=== PATIENT | male | born 1970 | race Caucasian/White ===

== ENCOUNTER 2024-12-01 15:08 | Outpatient (AMB) | payer MEDICARE, MEDICAID, SELFPAY ==
--- NOTE | 2024-12-01 15:10 | A.OFFVIS_ITS ---
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 Does have LE swelling Left LE worse than Right LE. Uses a cream to help with itching. 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 He has a history of venous insufficiency in his lower legs, initially identified by his primary care physician and previously evaluated by a vascular specialist who was not overly concerned at that time. The patient also consulted a nail specialist who recommended a topical steroid, which was ineffective and possibly exacerbated the condition. The patient reports worsening discoloration and rash on his lower legs, which have not improved over time. He denies any similar symptoms on his arms or other body parts. The patient has a family history of varicose veins, as his mother had significant varicose veins and was overweight. He denies any personal or family history of blood clots. The patient is a former smoker and has no history of diabetes, although he had a slightly elevated A1c level previously, which he managed through diet and exercise, bringing it down to 5.7%. 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 The patient experiences pain in his legs when reclining, particularly in one leg, although both legs are similarly affected. He has not undergone any procedures on his legs. It has been affecting there daily activities including walking. It is noted more so in left leg. Patient denies any previous venous surgery or injections. Patient denies any history of DVT/ PE. Patient denies any history of phlebitis. Trial of compression includes - [id number] They now present for vascular evaluation regarding their varicose veins. PFSH Surgical History (Updated 12/01/24 @ 15:18 by JONATAN Montoya) H/O colonoscopy Social History (Updated 12/01/24 @ 15:18 by JONATAN Montoya) Patient Tobacco Use Status: Never used Tobacco Review of Systems Const Reports as per HPI ENT Reports no additional complaints Card Denies chest pain, Denies chest pain at rest and Denies chest pain with activity Resp Denies chest congestion and Denies cough GI Reports no additional complaints Musc Details: pain over varicosities, aching of lower extremities, swelling, cramping, heaviness and tiredness, itching Denies abnormal gait Skin/Breast Reports pruritus and Denies wounds Neuro Reports no additional complaints and Denies abnormal gait Psych Denies no additional complaints Physical Exam Vital Signs: BMI result Body Mass Index 32.9 Const General: cooperative, healthy appearing and comfortable Orientation/consciousness: oriented to person, oriented to place and oriented to time Neck Carotids: no bruits Chest Chest palpation & inspection: normal inspection of the chest and normal palpation of entire chest wall Resp Effort & Inspection: normal respiratory effort and able to speak in complete sentences Cardio Rate: regular rate Heart sounds: S1 normal heart sound present and S2 normal heart sound present Peripheral pulses: Peripheral pulses 2+ throughout GI Inspection: Yes normal to inspection Skin Other: +2 edema, large rope-like varicosities greater than 4 mm CEAP Classification C4 - skin color changes Ep - Etiology Primary As - superficial veins P - reflux General skin exam: dry skin Neuro General: oriented to person, oriented to place and oriented to time Extrem Right lower extremity: full ROM, normal capillary refill and edema Left lower extremity: full ROM, normal capillary refill and edema Psych Mental Status: mental status grossly normal Assessment & Plan Assessment & Plan (1) Varicose veins of left lower extremity with inflammation: Code(s): I83.12 - Varicose veins of left lower extremity with inflammation Category: Medical Plan: In short, the patient has evidence of venous insufficiency. I have discussed the pathophysiology with the patient. In addition I have provided informational material regarding venous disease to the patient. We have discussed conservative measures including compression, elevation, and exercise. I have also provided a handout regarding appropriate use of compression stockings and where to purchase good compression stockings as well. I have taken the liberty of ordering venous insufficiency testing with the patient. They will follow up with me after testing. The patient had an opportunity to ask questions regarding the treatment plan. All questions were answered. Imaging studies, laboratory studies and physical exam results were discussed and reviewed in detail. No major barriers to understanding were identified. The patient expressed understanding and agreement with the above treatment plan. The patient is aware they should contact our office by phone for worsening of the current condition or the appearance of new symptoms. Thank you for allowing me to participate in the vascular care of this patient. If you have any questions or concerns regarding the treatment for the above condition please do not hesitate to contact me. The office telephone contact is [phone]. This note is constructed using voice recognition software. While every effort has been made to ensure accuracy, lithographic retoucher apprentice errors may have been included. Thank you for allowing me to participate in the care of your patient. Yours sincerely, Merlin Dewitt MD, FACS, R.P.V.I. Orders: Orders US venous duplex LE Today I83.12 - Varicose veins of left lower extremity with inflammation Coding Level of Care Code New Pt Level 4 (07300) Diagnoses Varicose veins of left lower extremity with inflammation I83.12
[2024-12-01 15:11] VITALS: BMI 32.9
--- OUTSIDE RECORDS SUMMARY | 2024-12-01 16:30 | XMS_ITS | Encounter Summary ---
Author Organization [facility] Address [address] [facility] [address] [place] [address] Phone Care Team Providers Care Wire Coiler Machine Operator Name Role Phone You Worthington MD Primary Care Provide r Encounter Details Date Type Department Care Team (Latest Contact Info) Description 02/12/2020 Ancillary Orders Virtual Department [address] [place] [address] Roderick Vitale, DO [address] [place] [address] [email or web address] Lumbar radiculopathy Social History Tobacco Use Types Packs/Day Years Used Date Smoking Tobacco: Never Assessed Sex and Gender Information Value Date Recorded Sex Assigned at Not on file Legal Sex Male 9:32 PM EDT Gender Identity Not on file Sexual Orientation Not on file documented as of this encounter Plan of Treatment Not on file documented as of this encounter Results * XR LUMBOSACRAL SPINE 2-3 VIEWS (02/15/2020 10:32 AM EST) Anatomical Region Laterality Modality L-spine Computed Radiogr aphy 02/15/2020 11:0 4 AM EST Impressions 02/15/2020 11:08 AM EST Mild scoliosis. No compression deformity or other dramatic change appreciated to account for the pain. Narrative 02/15/2020 11:08 AM EST AP, lateral, and coned-down lateral views are obtained and compared to prior May 23, 2015. There is some slight scoliosis convex left, progressive since prior. There does not appear to be prominently progressive disc height loss. No endplate compression or jermaine bony destructive lesion is seen. No gross sclerosis or erosion seen at the SI joints. Some iliac atherosclerotic change suggested on the right. Procedure Note Nahun Victor MD - 02/15/2020 AP, lateral, and coned-down lateral views are obtained and compared toprior May 23, 2015. There is some slight scoliosis convex left,progressive since prior. There does not appear to be prominentlyprogressive disc height loss. No endplate compression or jermaine bonydestructive lesion is seen. No gross sclerosis or erosion seen at the SIjoints. Some iliac atherosclerotic change suggested on the right. IMPRESSION: Mild scoliosis. No compression deformity or other dramatic changeappreciated to account for the pain. us Roderick Vitale DO IMG XR SPINE Final Result documented in this encounter Visit Diagnoses Diagnosis Lumbar radiculopathy Thoracic or lumbosacral neuritis or radiculitis, unspecified Lumbar radiculopathy Thoracic or lumbosacral neuritis or radiculitis, unspecified documented in this encounter Care Teams Wire Coiler Machine Operator Relationship Specialty Start Date End Date You Worthington MD [address] [address] PCP - General Family Medicine 12/24/17 documented as of this encounter Additional Source Comments The information contained in this document represents components of the legal health record. It is not the complete legal health record.[facility]
--- OUTSIDE RECORDS SUMMARY | 2024-12-01 16:30 | XMS_ITS | Encounter Summary ---
Author Organization [facility] Address [address] [facility] [address] [place] [address] Phone Care Team Providers Care Painter And Body Mechanic Apprentice Name Role Phone Kristina Gonzalez MD Primary Care Provider Kristina Gonzalez MD Primary Care Provider You Worthington MD Primary Care Provide r Encounter Details Date Type Department Care Team (Late st Contact Info) Description 03/21/2017 Transcribe Orders [facility] [address] [place] [address] System, Provider Not In, PhD Partners [address] [address] Depression, unspecified depression type (Primary Dx) Social History Tobacco Use Types Packs/Day Years Used Date Smoking Tobacco: Never Assessed Sex and Gender Information Value Date Recorded Sex Assigned at Not on file Legal Sex Male 9:32 PM EDT Gender Identity Not on file Sexual Orientation Not on file documented as of this encounter Plan of Treatment Not on file documented as of this encounter Results * (ABNORMAL) CBC and differential (03/21/2017 2:10 PM EST) WBC 8.13 3.40 - 11.20 K/uL [facility] RBC 4.51 4.50 - 5.50 M/uL [facility] HGB 14.1 13.0 - 17.0 g/dL [facility] HCT 42.7 40.0 - 51.0 % [facility] PLT 183 130 - 400 K/uL [facility] MCV 94.7 79.0 - 98.0 fL [facility] MCH 31.3 27.0 - 34.8 pg [facility] MCHC 33.0 31.5 - 36.0 g/dL [facility] RDW 13.0 10.8 - 14.6 % [facility] MPV 10.6 9.4 - 12.4 fl [facility] NRBC 0.00 /100 WBCs [facility] ABSOLUTE NRBC 0.00 K/uL [facility] DIFF METHOD Auto [facility] NEUTS 61.7 45.30 - 77.70 % [facility] LYMPHS 29.0 12.30 - 39.70 % [facility] MONOS 8.2 4.10 - 12.80 % [facility] EOS 0.0 0 - 7.2 % [facility] BASOS 0.6 0 - 2.80 % [facility] Granulocytes, immature (%) 0.5 0.0 - 0.9 % [facility] ABSOLUTE NEUTS 5.01 1.40 - 7.70 K/uL [facility] ABSOLUTE LYMPHS 2.36 0.60 - 3.20 K/uL [facility] ABSOLUTE MONOS 0.67(H) 0.11 - 0.59 K/uL [facility] ABSOLUTE EOS 0.00(L) 0.01 - 0.50 K/uL [facility] ABSOLUTE BASOS 0.05 0.00 - 0.08 K/uL [facility] Granulocytes, immature 0.04 0.00 - 0.05 K/uL [facility] Blood 03/21/2017 2:10 PM EST 03/21/2017 2:13 PM EST us Provider Not In System PhD LAB BLOOD ORDERABLES Final Result [facility] [address] [place] [address] documented in this encounter Visit Diagnoses Diagnosis Depression, unspecified depression type- Primary documented in this encounter Care Teams Painter And Body Mechanic Apprentice Relationship Specialty Start Date End Date Kristina Gonzalez MD PCP - General Family Medicine 01/23/17 11/11/17 Kristina Gonzalez MD PCP - General Family Medicine 11/12/17 12/23/17 You Worthington MD [address] [address] PCP - General Family Medicine 12/24/17 documented as of this encounter Additional Source Comments The information contained in this document represents components of the legal health record. It is not the complete legal health record.[facility]
--- OUTSIDE RECORDS SUMMARY | 2024-12-01 16:30 | XMS_ITS | Encounter Summary ---
Author Organization [facility] Address [address] [facility] [address] [place] [address] Phone Care Team Providers Care Coding Quality Analyst Name Role Phone You Worthington MD Primary Care Provide r Encounter Details Date Type Department Care Team ([facility] st Contact Info) Description 02/17/2020 Procedure Pass [facility], [address] [address] Social History Tobacco Use Types Packs/Day Years Used Date Smoking Tobacco: Never Assessed Sex and Gender Information Value Date Recorded Sex Assigned at Not on file Legal Sex Male 9:32 PM EDT Gender Identity Not on file Sexual Orientation Not on file documented as of this encounter Last Filed Vital Signs Vital Sign Reading Time Taken Comments Blood Pressure - - Pulse - - Temperature - - Respiratory Rate - - Oxygen Saturation - - Inhaled Oxygen Concentration - - Weight 129.3 kg (285 lb) 02/18/2020 1:44 PM EST Height 193 cm (6' 4 ) 02/18/2020 1:44 PM EST Body Mass Index 34.69 02/18/2020 1:44 PM EST documented in this encounter Plan of Treatment Not on file documented as of this encounter Visit Diagnoses Not on filedocumented in this encounter Care Teams Coding Quality Analyst Relationship Specialty Start Date End Date You Worthington MD [address] [facility] [address] [place] [address] PCP - General Family Medicine 12/24/17 documented as of this encounter Additional Source Comments The information contained in this document represents components of the legal health record. It is not the complete legal health record.[facility]
--- OUTSIDE RECORDS SUMMARY | 2024-12-01 16:30 | XMS_ITS | Encounter Summary ---
Author Organization [facility] Address [address] [facility] [address] [place] [address] Phone Care Team Providers Care Concrete Form Setter Name Role Phone You Worthington MD Primary Care Provide r Reason for Referral * MRI/CAT Scan - Closed Specialty Diagnoses / Procedures Referred By Duglas ovalle Referred To Contact Radiology Diagnoses Lumbar radiculopathy Procedures MRI Lumbar Spine Roderick Vitale DO Phone: tel: fax: [email or web address] Referral ID Status Reason Start Date Expiration Date Visits Re quested Visits Authorized [id number] Closed 02/17/2020 02/16/2021 1 1 Encounter Details Date Type Department Care Team (Latest Contact Info) Description 02/17/2020 Ancillary Orders Virtual Department [address] [place] [address] Roderick Vitale DO [address] [place] [address] [email or web address] Lumbar radiculopathy Social History Tobacco Use Types Packs/Day Years Used Date Smoking Tobacco: Never Assessed Sex and Gender Information Value Date Recorded Sex Assigned at Not on file Legal Sex Male 9:32 PM EDT Gender Identity Not on file Sexual Orientation Not on file documented as of this encounter Plan of Treatment Not on file documented as of this encounter Results * MRI LUMBAR SPINE (NEURO) WITHOUT CONTRAST (02/23/2020 7:20 PM EST) Anatomical Region Laterality Modality L-spine Magnetic Resonan ce 02/24/2020 7:47 AM EST Impressions 02/24/2020 7:55 AM EST Small L2-3 and L4-5 disc herniations. No significant degenerative changes, nerve root compression, canal or neural foraminal stenosis. Narrative 02/24/2020 7:55 AM EST COMPARISON: Lumbar spine x-rays 02/15/2020. TECHNIQUE: Exam performed on a 1.5 Lupe high-field MRI scanner. Sagittal T1, T2 and STIR, axial T1 and T2 sequences were obtained. MRI LUMBAR SPINE FINDINGS: Normal lordosis. No compression fractures. No malalignment. L2-3 disc desiccation mild disc space narrowing. No destructive or suspicious bone lesions. Conus terminates at T12-L1. Paraspinal soft tissues are normal. L1-L2: Unremarkable. L2-L3: Disc desiccation and mild disc space narrowing. Broad-based left paracentral disc protrusion and annular tear. L3-L4: Unremarkable. L4-L5: Small broad-based central disc protrusion and annular tear. Mild facet arthropathy. L5-S1: Unremarkable. Procedure Note Christiano Ochoa MD - 02/24/2020 COMPARISON: Lumbar spine x-rays 02/15/2020. TECHNIQUE: Exam performed on a 1.5 Lupe high-field MRI scanner. SagittalT1, T2 and STIR, axial T1 and T2 sequences were obtained. MRI LUMBAR SPINE FINDINGS: Normal lordosis. No compression fractures. No malalignment. L2-3 discdesiccation mild disc space narrowing. No destructive or suspicious bonelesions. Conus terminates at T12-L1. Paraspinal soft tissues are normal. L1-L2: Unremarkable. L2-L3: Disc desiccation and mild disc space narrowing. Broad-based leftparacentral disc protrusion and annular tear. L3-L4: Unremarkable. L4-L5: Small broad-based central disc protrusion and annular tear. Mildfacet arthropathy. L5-S1: Unremarkable. IMPRESSION: Small L2-3 and L4-5 disc herniations. No significant degenerative changes,nerve root compression, canal or neural foraminal stenosis. us Roderick Vitale DO IMG MR XSPECIALTY Final Resu lt documented in this encounter Visit Diagnoses Diagnosis Lumbar radiculopathy Thoracic or lumbosacral neuritis or radiculitis, unspecified Lumbar radiculopathy Thoracic or lumbosacral neuritis or radiculitis, unspecified documented in this encounter Care Teams Concrete Form Setter Relationship Specialty Start Date End Date You Worthington MD [address] [address] PCP - General Family Medicine 12/24/17 documented as of this encounter Additional Source Comments The information contained in this document represents components of the legal health record. It is not the complete legal health record.[facility]
--- OUTSIDE RECORDS SUMMARY | 2024-12-01 16:31 | XMS_ITS | Encounter Summary ---
Author Organization [facility] Address [address] [facility] [address] [place] [address] Phone Care Team Providers Care Toll Relief Operator Name Role Phone You Worthington MD Primary Care Provide r Encounter Details Date Type Department Care Team ([facility] st Contact Info) Description 12/04/2022 Transcribe Orders [facility] Processing [address] [place] [address] Archie Reddy MD [address] [place] [phone] Social History Tobacco Use Types Packs/Day Years Used Date Smoking Tobacco: Never Assessed Education Answer Date Recorded Are you interested in more education? Not on osiel e 06/28/2022 Are you concerned about learning? Not on file 06/28/2022 No 06/28/2022 No 06/28/2022 Digital Access Answer Date Recorded No 07/30/2022 No 07/30/2022 Reliable internet access at home? Not on file 07/30/2022 Device with a working camera? Not on file Sex and Gender Information Value Date Recorded Sex Assigned at Not on file Legal Sex Male 9:32 PM EDT Gender Identity Not on file Sexual Orientation Not on file documented as of this encounter Plan of Treatment Not on file documented as of this encounter Visit Diagnoses Not on filedocumented in this encounter Care Teams Toll Relief Operator Relationship Specialty Start Date End Date You Worthington MD [address] [facility] [address] [place] [address] PCP - General Family Medicine 12/24/17 documented as of this encounter Additional Source Comments The information contained in this document represents components of the legal health record. It is not the complete legal health record.[facility]
--- OUTSIDE RECORDS SUMMARY | 2024-12-01 16:31 | XMS_ITS | Clinical Summary ---
Author Organization [facility] Address [address] [place] [address] Phone Care Team Providers Care Civil Engineering Draftsperson Name Role Phone You Worthington MD Primary Care Provide r Allergies No known active allergies Medications cloZAPine (CLOZARIL) 100 MG tablet Take 100 mg by mouth 3 (three) times a day. Active divalproex (DEPAKOTE) [address] tablet Take 500 mg by mouth 2 (two) times a day. Active Active Problems No known active problems Encounters Date Type Department Care Team Description 11/05/2024 2:26 PM EDT - 11/05/2024 11:59 PM EDT Hospital Encounter [facility] Laboratory [address] [place] [address] Haroon Reddy MD Discharge Disposition: Home or Self Care 11/02/2024 Orders Only [facility] Specimen Processing [address] [place] [address] Haroon Reddy MD Schizoaffective disorder, depressive type (Primary Dx); Drug therapy 10/29/2024 2:03 PM EDT - 10/29/2024 11:59 PM EDT Hospital Encounter [facility] Laboratory [address] [place] [address] Haroon Reddy MD Discharge Disposition: Home or Self Care 10/29/2024 Transcribe Orders [facility] [address] [place] [address] Haroon Reddy MD Schizoaffective disorder, depressive type (Primary Dx); Pharmacologic therapy 10/28/2024 3:48 PM EDT - 10/28/2024 11:59 PM EDT Hospital Encounter [facility] [address] [place] [address] Haroon Reddy MD Discharge Disposition: Home or Self Care from Last 3 Months Social History Tobacco Use Types Packs/Day Years Used Date Smoking Tobacco: Former Cigarettes Q uit: 2018 Smokeless Tobacco: Never Tobacco Cessation:Counseling Given: Not Answered Alcohol Use Standard Drinks/Week Comments Never 0 (1 standard drink = 0.6 oz pur e alcohol) Education Answer Date Recorded Are you interested in more education? Not on oseil e 06/28/2022 Are you concerned about learning? Not on file 06/28/2022 No 06/28/2022 No 06/28/2022 Digital Access Answer Date Recorded No 07/30/2022 No 07/30/2022 Reliable internet access at home? Not on file 07/30/2022 Device with a working camera? Not on file Intimate Partner Violence Answer Date R ecorded Are you denied basic needs s uch as food, clothing, or medical care? No 07/03/2024 In the past 12 months have y ou been in a relationship with a person who hurts, threatens, or tries to control you? No 07/03/2024 Are you denied basic needs s uch as food, clothing, or medical care? No 07/03/2024 In the past 12 months have y ou been in a relationship with a person who hurts, threatens, or tries to control you? No 07/03/2024 Sex and Gender Information Value Date Recorded Sex Assigned at Not on file Legal Sex Male 9:32 PM EDT Gender Identity Not on file Sexual Orientation Not on file Last Filed Vital Signs Vital Sign Reading Time Taken Comments Blood Pressure 125/79 07/09/2024 11:07 AM EDT Pulse 74 07/09/2024 11:07 AM EDT Temperature 36.4 C (97.6 F) 07/09/2024 10:50 AM EDT Respiratory Rate 15 07/09/2024 11:07 AM EDT Oxygen Saturation 95% 07/09/2024 11:07 AM EDT Inhaled Oxygen Concentration - - Weight 129.3 kg (285 lb) 07/03/2024 2:14 PM EDT Height 193 cm (6' 4 ) 07/03/2024 2:14 PM EDT Body Mass Index 34.69 07/03/2024 2:14 PM EDT Plan of Treatment Health Maintenance Due Date Last Done Comments DEPRESSION SCREENING 1984 SMOKING Hx and SMOKELESS TOBACCO SCREENING 1985 HEPATITIS C SCREENING 1990 HIV ONE-TIME SCREENING (18-65 YEARS) 1990 COLOGUARD 2017 FIT TEST 2017 FOBT 2017 SIGMOIDOSCOPY 2017 VIRTUAL COLONOSCOPY 2017 PNEUMOCOCCAL VACCINES (50+ years) (2 of 2 - PCV) 2022 02/03/2013 SCREENING FOR DIABETES 07/18/2024 07/18/2021 INFLUENZA VACCINE (#1) 2024 , 12/12/2022, 12/25/2021, Additional history exists ABSOLUTE NEUTROPHIL COUNT (ANC) 11/26/2024 10/29/2024, 07/30/2024, 05/11/2024, Additional history exists VALPROIC ACID (DEPAKENE) LEVEL 11/05/2025 11/05/2024, 09/11/2023, 07/17/2022, Additional history exists LIPID PANEL 07/18/2026 07/18/2021, 07/03, 08/19/2019, Additional history exists Adult Td,Tdap Booster 01/25/2032 01/24/2022 , 11/21/2010, 07/02/1998 COLONOSCOPY 07/09/2034 07/09/2024, 06/14/2023 COLORECTAL CANCER SCREENING 07/09/2034 COVID-19 VACCINE Completed 12/03/2023, , 11/21/2021, Additional history exists ZOSTER VACCINES Completed 06/24/2024, 04/25/2024 HEPATITIS A VACCINES Aged Out No long er eligible based on patient's age to complete this topic HIB VACCINES Aged Out No longer eligi ble based on patient's age to complete this topic MENINGOCOCCAL VACCINES (ACWY) Aged Out No longer eligible based on patient's age to complete this topic MENINGOCOCCAL VACCINES (B) Aged Out N o longer eligible based on patient's age to complete this topic Medical Devices Implanted Type Area Parts And Service Manager Device Identifier Shelf Expiration Date Model / Serial / Lot Clip Hemostasis 360deg 235cm Resolution 360 Latex Free 2.8mm Channel Bx/20ea - [id number] Implanted:Qty: 1 on 06/14/2023 by Tex Callahan MD at [facility] [employer] [id number] / / Clip Hemostasis 16mm Cs/5ea - [id number] Implanted:Qty: 1 on 07/09/2024 by Tex Callahan MD at [facility] [employer] 117 / / Procedures Procedure Name Priority Date/Time Associated Diagnosis Comments VALPROIC ACID Routine 11/05/2024 2:34 PM EDT Schizoaffective disorder, depressive type Drug therapy LFTS (HEPATIC PANEL) Routine 11/05/2024 2:34 PM EDT Schizoaffective disorder, depressive type Drug therapy LFTS (HEPATIC PANEL) Routine 10/29/2024 2:10 PM EDT Schizoaffective disorder, depressive type Pharmacologic therapy CBC AND DIFFERENTIAL Routine 10/29/2024 2:10 PM EDT Schizoaffective disorder, depressive type Pharmacologic therapy ENDOSCOPY, COLON 07/09/2024 10:1 8 AM EDT LIPID PANEL Routine 07/18/2021 9:22 AM EDT High risk medication use Schizoaffective disorder, depressive type Encounter for long-term (current) use of other medications from Last 3 Months or Most Recently Relevant to Health Maintenance Results * LFTs (hepatic panel) (11/05/2024 2:34 PM EDT) Only the most recent of2 resultswithin the time period is included. ALKALINE PHOSPHATASE 71 39 - 117 U/L [facility] TOTAL BILIRUBIN 0.5 0.0 - 1.2 mg/dL [facility] DIRECT BILIRUBIN 0.1 0.0 - 0.2 mg/dL [facility] Bilirubin (Indirect) NOT CALCULATED 0 - 1.5 mg/dL [facility] AST 25 0 - 37 U/L [facility] ALT 27 0 - 40 U/L [facility] TOTAL PROTEIN 7.2 6.5 - 8.0 g/dL [facility] ALBUMIN 4.5 3.9 - 4.8 g/dL [facility] GLOBULIN 2.7 1 - 4.8 g/dL [facility] A/G Ratio 1.67 1.00 - 4.80 RATIO [facility] Blood 11/05/2024 2:34 PM EDT 11/05/2024 2:46 PM EDT Haroon Reddy MD LAB BLOOD ORDERABLES Final Result [address] [address] * Valproic acid (11/05/2024 2:34 PM EDT) VALPROIC ACID 58.3 50.0 - 100.0 ug/mL [facility] Blood 11/05/2024 2:34 PM EDT 11/05/2024 2:46 PM EDT Haroon Reddy MD LAB BLOOD ORDERABLES Final Result [address] [address] * CBC and differential (10/29/2024 2:10 PM EDT) WBC 8.45 4.00 - 11.00 K/uL [facility] RBC 5.03 4.50 - 5.90 M/uL [facility] HGB 15.6 13.5 - 17.5 g/dL [facility] HCT 47.3 41.0 - 53.0 % [facility] PLT 175 150 - 450 K/uL [facility] MCV 94.0 80.0 - 100.0 fL [facility] MCH 31.0 27.0 - 31.0 pg [facility] MCHC 33.0 32.0 - 36.0 g/dL [facility] RDW 12.9 11.5 - 14.5 % [facility] MPV 11.2 8.4 - 12.0 fL [facility] NRBC 0.00 0.00 /100 WBCs [facility] ABSOLUTE NRBC 0.00 0.00 K/uL [facility] DIFF METHOD Auto [facility] NEUTS 63.2 48.0 - 76.0 % [facility] LYMPHS 29.1 18.0 - 41.0 % [facility] MONOS 6.3 4.0 - 11.0 % [facility] EOS 0.1 0.0 - 5.0 % [facility] BASOS 0.6 0.0 - 1.5 % [facility] Granulocytes, immature (%) 0.7 0.0 - 0.9 % [facility] ABSOLUTE NEUTS 5.34 1.92 - 7.60 K/uL [facility] ABSOLUTE LYMPHS 2.46 0.72 - 4.10 K/uL [facility] ABSOLUTE MONOS 0.53 0.16 - 1.10 K/uL [facility] ABSOLUTE EOS 0.01 0.00 - 0.50 K/uL [facility] ABSOLUTE BASOS 0.05 0.00 - 0.15 K/uL [facility] Granulocytes, immature 0.06 0.00 - 0.09 K/uL [facility] Blood 10/29/2024 2:10 PM EDT 10/29/2024 2:13 PM EDT Haroon Reddy MD LAB BLOOD ORDERABLES Final Result Performing Organization Address City/State/[facility] Co de Phone Number [address] [address] * ENDOSCOPY, COLON (07/09/2024 10:18 AM EDT) Narrative Transcriptions Tex Callahan MD - 07/09/2024 10:18 AM EDT [facility] Patient Name: Gopi Estes Attending MD:: TEX CALLAHAN MD, Procedure Date: 07/09/2024 10:18 AM Date of : 1970 Age: 54 Admit Type: Outpatient Gender: Male Room: [place] [address] Referring MD: You Worthington Exam Type: Colonoscopy Indications: High risk colon cancer surveillance: Personalhistory of colonic polyps(10 adenomas removed one yearago) Medications: Monitored Anesthesia Care Procedure: Informed consent was obtained from the patientafter discussion of the indications, limitations, alternatives, benefits, and risks of the procedure. Risks specifically discussed include but are not limited to medication reactions, missed lesions, bleeding, perforation, or the need for emergent surgery. Throughout the procedure, the patient's blood pressure, pulse, end-tidal CO2, and oxygensaturations were monitored continuously. The Colonoscope was introduced through the anus and advanced to the cecum, identified by theappendiceal orifice. The colonoscopy was performed without difficulty. The patient tolerated the procedurewell. The quality of the bowel preparation was good. Anatomical landmarks were photographed. Complications: No immediate complications. Estimated blood loss:None. Findings: The perianal and digital rectal examinations were normal. Ten sessile polyps were found in the sigmoid colon, descending colon, transverse colon, ascending colon and cecum. The polyps were 4 to 10 mm in size.These polyps were removed with a cold snare. Resectionand retrieval were complete. To stop active bleeding,one hemostatic clip was successfully placed. Clip supervisor assembling: [employer]. There was nobleeding at the end of the procedure. The rectum, recto-sigmoid colon, splenic flexure, hepatic flexure, appendiceal orifice, ileocecalvalve, rectum (on retroflexion) and ascending colon (on retroflexion) appeared normal. Impression: - Ten 4 to 10 mm polyps in the sigmoid colon, inthe descending colon, in the transverse colon, in the ascending colon and in the cecum, removed with acold snare. Resected and retrieved. - The rectum (on retroflexion), ascending colon (on retroflexion), rectum, splenic flexure, hepatic flexure, recto-sigmoid colon, ileocecal valve and appendiceal orifice are normal. Recommendation: - Discharge patient to home. - Resume previous diet. - Continue present medications. - Await pathology results. - Repeat colonoscopy in 1 year for surveillance. - Refer to a genetics counselor at appointment to be scheduled. - I will send you pathology results by letter. If you do not getresults in 3 weeks telephone my office. TEX CALLAHAN MD 07/09/2024 10:48:59 AM This report has been signed electronically. Number of Addenda: 0 Note Initiated On: 07/09/2024 10:18 AM Procedure Code(s): --- Professional --- 22622, Colonoscopy, flexible; with removal of tumor(s), polyp(s), or other lesion(s) by snare technique --- Technical --- 36868, Colonoscopy, flexible; with removal of tumor(s), polyp(s), or other lesion(s) by snare technique CPT copyright 2021 [employer]. All rights reserved. The codes documented in this report are preliminary and upon senior manager creative services reviewmay be revised to meet current compliance requirements. Procedure Date: 07/09/2024 10:18:[address] [place] [address] us You Weinstein MD GI PROCEDURE ORDERABL ES Final Result * (ABNORMAL) Lipid panel (07/18/2021 9:22 AM EDT) HDL 40 mg/dL [facility] Comment: Interpretation <40 mg/dL: Low HDL cholesterol (major risk factor for CHD) Greater than or equal to 60 mg/dL: High HDL cholesterol ( negative risk factor for CHD) HDL - cholesterol is affected by a number of factors, e.g. smoking, excerise, hormones, sex and age. CHOLESTEROL 224 0 - 240 mg/dL [facility] TRIGLYCERIDES 322(H) 30 - 160 mg/dL [facility] LDL 120 50 - 129 mg/dL [facility] Comment: LDL levels in terms of risk for coronary heart disease: <100 mg/dL: Optimal 100-129 mg/dL: Near or above optimal 130-159 mg/dL: Borderline high 160-189 mg/dL: High >190 mg/dL: Very High CARDIAC RISK RATIO 5.6(H) 3.4 - 5.0 C [facility] Blood 07/18/2021 9:22 AM EDT 07/18/2021 9:36 AM EDT us Shubham Armendariz MD LAB BLOOD ORDERABLES Final Result [facility] [address] [place] [address] from Last 3 Months or Most Recently Relevant to Health Maintenance Insurance [place] [id number] [facility] MEDICARE PART A & [address] [place], [place] [address]HEALTH MEDICARE PART A & B [facility] [address] [place] [id number] MEDICARE PART A & B [employer] MEDIC[employer] PART A & B [facility] B [facility] MED[facility] PART A & B Member Subscriber Plan / Payer (Ef fective 1992-) Name:Gopi Estes Member ID:[id number] Relation to Subscriber:Self Name:Gopi Estes Subscriber ID:[id number] Payer ID:[id number] Group ID:Not on file Type:Medicare Address: [employer] [address] [place] [phone] [facility] B [facility] Care Teams Civil Engineering Draftsperson Relationship Specialty Start Date End Date You Worthington MD [facility] [address] [address] PCP - General Family Medicine 12/24/17 Additional Source Comments The information contained in this document represents components of the legal health record. It is not the complete legal health record.[facility]
--- OUTSIDE RECORDS SUMMARY | 2024-12-01 16:31 | XMS_ITS | Encounter Summary ---
Author Organization [facility] Address [address] [place] [phone] Phone Care Team Providers Care Locomotive Mechanic Apprentice Name Role Phone You Worthington MD Primary Care Provide r Encounter Details Date Type Department Care Team (Latest Contact Info) Description 08/19/2019 Transcribe Orders [facility] [address] [place] [id number] Shubham Armendariz MD [address] [place] [id number] [email or web address] Schizoaffective disorder, unspecified type (Primary Dx); Type 2 diabetes mellitus without complication, unspecified whether vermin exterminator insulin use Social History Tobacco Use Types Packs/Day Years Used Date Smoking Tobacco: Never Assessed Sex and Gender Information Value Date Recorded Sex Assigned at Not on file Legal Sex Male 9:32 PM EDT Gender Identity Not on file Sexual Orientation Not on file documented as of this encounter Plan of Treatment Not on file documented as of this encounter Results * Troponin (08/19/2019 12:19 PM EDT) Troponin T-hs Gen5 13 0 - 14 ng/L [facility] Blood 08/19/2019 12:1 9 PM EDT 08/19/2019 12:34 PM EDT us Shubham Armendariz MD LAB BLOOD ORDERABLES Final Result [facility] [address] [place] [address] * Ammonia (08/19/2019 12:19 PM EDT) AMMONIA 41 28 - 80 umol/L [facility] Blood 08/19/2019 12:1 9 PM EDT 08/19/2019 12:32 PM EDT Shubham Armendariz MD LAB BLOOD ORDERABLES Final Result [address] [address] * (ABNORMAL) Valproic acid (08/19/2019 12:19 PM EDT) VALPROIC ACID 33.0(L) 50.0 - 100.0 ug/mL [facility] Blood 08/19/2019 12:1 9 PM EDT 08/19/2019 12:32 PM EDT us Shubham Armendariz MD LAB BLOOD ORDERABLES Final Result Performing Organization Address City/[facility]/ZIP Co de Phone Number [address] [address] * Hemoglobin A1c (08/19/2019 12:19 PM EDT) HEMOGLOBIN A1C 5.7 4.3 - 5.8 % [facility] Blood 08/19/2019 12:1 9 PM EDT 08/19/2019 12:32 PM EDT Shubham Armendariz MD LAB BLOOD ORDERABLES Final Result Performing Organization Address City/[facility]/ZIP Co de Phone Number [address] [address] * (ABNORMAL) Lipid panel (08/19/2019 12:19 PM EDT) HDL 42 mg/dL [facility] Comment: Interpretation <40 mg/dL: Low HDL cholesterol (major risk factor for CHD) Greater than or equal to 60 mg/dL: High HDL cholesterol ( negative risk factor for CHD) HDL - cholesterol is affected by a number of factors, e.g. smoking, excerise, hormones, sex and age. CHOLESTEROL 247(H) 0 - 240 mg/dL [facility] TRIGLYCERIDES 324(H) 30 - 160 mg/dL [facility] LDL 140(H) 50 - 129 mg/dL [facility] Comment: LDL levels in terms of risk for coronary heart disease: <100 mg/dL: Optimal 100-129 mg/dL: Near or above optimal 130-159 mg/dL: Borderline high 160-189 mg/dL: High >190 mg/dL: Very High CARDIAC RISK RATIO 5.9(H) 3.4 - 5.0 C [facility] Blood 08/19/2019 12:1 9 PM EDT 08/19/2019 12:32 PM EDT Shubham Armendariz MD LAB BLOOD ORDERABLES Final Result Performing Organization Address City/[facility]/ZIP Co de Phone Number [address] [address] * C-Reactive Protein (08/19/2019 12:19 PM EDT) Pathologist [facility] C REACTIVE PROTEIN 1.2 0.0 - 4.0 mg/L [facility] Blood 08/19/2019 12:1 9 PM EDT 08/19/2019 12:32 PM EDT Shubham Armendariz MD LAB BLOOD ORDERABLES Final Result [address] [address] * (ABNORMAL) Comprehensive metabolic panel (08/19/2019 12:19 PM EDT) SODIUM 139 133 - 146 mmol/L [facility] POTASSIUM 4.3 3.3 - 5.1 mmol/L [facility] CHLORIDE 103 96 - 108 mmol/L [facility] CO2 22 21 - 35 mmol/L [facility] BUN 11 6 - 19 mg/dL [facility] CREATININE 0.70 0.5 - 1.5 mg/dL [facility] GLUCOSE 108(H) 70 - 99 mg/dL [facility] ALBUMIN 4.7 3.9 - 4.8 g/dL [facility] TOTAL PROTEIN 7.3 6.5 - 8.0 g/dL [facility] CALCIUM 9.7 8.4 - 10.3 mg/dL [facility] ALKALINE PHOSPHATASE 59 39 - 117 U/L [facility] TOTAL BILIRUBIN 0.5 0.0 - 1.2 mg/dL [facility] AST 22 0 - 37 U/L [facility] ALT 27 0 - 40 U/L [facility] GLOBULIN 2.6 1 - 4.8 g/dL [facility] EGFR 112 >59 mL/min/1.7 3m2 [facility] Comment:If patient is black, multiply result by 1.159. Estimated glomerular filtration rate calculated using the CKD-EPI equation. ANION GAP 18 10 - 20 mmol/L [facility] Blood 08/19/2019 12:1 9 PM EDT 08/19/2019 12:32 PM EDT us Shubham Armendariz MD LAB BLOOD ORDERABLES Final Result [facility] [address] [place] [address] documented in this encounter Visit Diagnoses Diagnosis Schizoaffective disorder, unspecified type- Primary Type 2 diabetes mellitus without complication, unspecified whether halfway insulin use documented in this encounter Care Teams Locomotive Mechanic Apprentice Relationship Specialty Start Date End Date You Worthington MD [address] [address] PCP - General Family Medicine 12/24/17 documented as of this encounter Additional Source Comments The information contained in this document represents components of the legal health record. It is not the complete legal health record.[facility]
--- OUTSIDE RECORDS SUMMARY | 2024-12-01 16:31 | XMS_ITS | Encounter Summary ---
Author Organization [facility] Address [address] [place] [address] Care Team Providers Care Precision Inspector Name Role Phone Unavailable Primary Care Provider Unavailabl e Encounter Details Date Type Department Care Team (Latest Contact Info) Description 07/06/2020 Abstract [facility] Dental, Provider, DDS Social History Tobacco Use Types Packs/Day Years Used Date Smoking Tobacco: Never Assessed Sex and Gender Information Value Date Recorded Sex Assigned at Male 01/04/2022 7:03 PM EDT Legal Sex Male 5:36 PM EDT Gender Identity Male 07/10/2022 1:31 PM EDT Sexual Orientation Straight 07/10/2022 1: 31 PM EDT documented as of this encounter Plan of Treatment Upcoming Encounters Date Type Department Care Team (Late st Contact Info) Description 12/24/2024 2:50 PM EDT Office Visit [facility] Dental [address] [place] [address] Sofia Kuhn LLD [address] [place] [address] documented as of this encounter Visit Diagnoses Not on filedocumented in this encounter
--- OUTSIDE RECORDS SUMMARY | 2024-12-01 16:31 | XMS_ITS | Encounter Summary ---
Author Organization [facility] Address [address] [facility] [address] [place] [phone] Phone Care Team Providers Care Physician Name Role Phone Kristina Gonzalez MD Primary Care Provider Kristina Gonzalez MD Primary Care Provider You Worthington MD Primary Care Provide r Encounter Details Date Type Department Care Team (Latest Contact Info) Description 01/23/2017 Transcribe Orders [facility] Laboratory 30 [place] [address] Geo Russo, KASSANDRA 50 [place], [place] [phone] Schizoaffective disorder, unspecified type (Primary Dx) Social History Tobacco Use Types Packs/Day Years Used Date Smoking Tobacco: Never Assessed Sex and Gender Information Value Date Recorded Sex Assigned at Not on file Legal Sex Male 9:32 PM EDT Gender Identity Not on file Sexual Orientation Not on file documented as of this encounter Plan of Treatment Not on file documented as of this encounter Procedures Procedure Name Priority Date/Time Associated Diagnosis Comments CBC AND DIFFERENTIAL Routine 01/23/2017 1:58 PM EST Schizoaffective disorder, unspecified type documented in this encounter Results * (ABNORMAL) CBC and differential (01/23/2017 1:58 PM EST) WBC 7.89 3.40 - 11.20 K/uL [facility] RBC 5.06 4.50 - 5.50 M/uL [facility] HGB 15.9 13.0 - 17.0 g/dL [facility] HCT 46.8 40.0 - 51.0 % [facility] PLT 193 130 - 400 K/uL [facility] MCV 92.5 79.0 - 98.0 fL [facility] MCH 31.4 27.0 - 34.8 pg [facility] MCHC 34.0 31.5 - 36.0 g/dL [facility] RDW 13.0 10.8 - 14.6 % [facility] MPV 10.9 9.4 - 12.4 fl [facility] NRBC 0.00 /100 WBCs [facility] ABSOLUTE NRBC 0.00 K/uL [facility] DIFF METHOD Auto [facility] NEUTS 59.8 45.30 - 77.70 % [facility] LYMPHS 30.7 12.30 - 39.70 % [facility] MONOS 8.2 4.10 - 12.80 % [facility] EOS 0.3 0 - 7.2 % [facility] BASOS 0.5 0 - 2.80 % [facility] Granulocytes, immature (%) 0.5 0.0 - 0.9 % [facility] ABSOLUTE NEUTS 4.72 1.40 - 7.70 K/uL [facility] ABSOLUTE LYMPHS 2.42 0.60 - 3.20 K/uL [facility] ABSOLUTE MONOS 0.65(H) 0.11 - 0.59 K/uL [facility] ABSOLUTE EOS 0.02 0.01 - 0.50 K/uL [facility] ABSOLUTE BASOS 0.04 0.00 - 0.08 K/uL [facility] Granulocytes, immature 0.04 0.00 - 0.05 K/uL [facility] Blood 01/23/2017 1:58 PM EST 01/23/2017 2:06 PM EST us Geo Russo NP LAB BLOOD ORDERABLES Edited Res ult - Final [facility] [address] [place] [address] documented in this encounter Visit Diagnoses Diagnosis Schizoaffective disorder, unspecified type- Primary documented in this encounter Care Teams Physician Relationship Specialty Start Date End Date Kristina Gonzalez MD PCP - General Family Medicine 01/23/17 11/11/17 Kristina Gonzalez MD PCP - General Family Medicine 11/12/17 12/23/17 You Worthington MD [address] [address] PCP - General Family Medicine 12/24/17 documented as of this encounter Additional Source Comments The information contained in this document represents components of the legal health record. It is not the complete legal health record.[facility]
--- OUTSIDE RECORDS SUMMARY | 2024-12-01 16:31 | XMS_ITS | Encounter Summary ---
Author Organization [facility] Address [address] [facility] [address] [place] [address] Phone Care Team Providers Care Customer Service Technician Name Role Phone Kristina Gonzalez MD Primary Care Provider Kristina Gonzalez MD Primary Care Provider You Worthington MD Primary Care Provide r Encounter Details Date Type Department Care Team (Latest Contact Info) Description 04/23/2017 Transcribe Orders [facility] Laboratory 30 [place] [address] Karina Bird, KASSANDRA 51 [place], [place] [phone] Schizoaffective disorder, depressive type (Primary Dx) Social History Tobacco Use Types Packs/Day Years Used Date Smoking Tobacco: Never Assessed Sex and Gender Information Value Date Recorded Sex Assigned at Not on file Legal Sex Male 9:32 PM EDT Gender Identity Not on file Sexual Orientation Not on file documented as of this encounter Plan of Treatment Not on file documented as of this encounter Visit Diagnoses Diagnosis Schizoaffective disorder, depressive type- Primary Schizoaffective disorder, unspecified condition documented in this encounter Care Teams Customer Service Technician Relationship Specialty Start Date End Date Kristina Gonzalez MD PCP - General Family Medicine 01/23/17 11/11/17 Kristina Gonzalez MD PCP - General Family Medicine 11/12/17 12/23/17 [facility] [address] [address] PCP - General Family Medicine 12/24/17 documented as of this encounter Additional Source Comments The information contained in this document represents components of the legal health record. It is not the complete legal health record.[facility]
--- OUTSIDE RECORDS SUMMARY | 2024-12-01 16:31 | XMS_ITS | Encounter Summary ---
Author Organization [facility] Address [address] [facility] [address] [place] [address] Phone Care Team Providers Care Paper Processing Machine Helper Name Role Phone You Worthington MD Primary Care Provide r Encounter Details Date Type Department Care Team (Late st Contact Info) Description 12/24/2017 Transcribe Orders Non-Invasive Cardiology 30 [place] [address] Shubham Armendariz MD 50 [place] [address] [email or web address] Schizophrenia, unspecified type (Primary Dx) Social History Tobacco [...] documented as of this encounter Results * ECG 12-LEAD (12/24/2017 1:01 PM EDT) Ventricular Rate EKG/MIN 80 BPM [facility] Atrial Rate 80 BPM [facility] NE Interval 140 ms [facility] QRS Duration 86 ms [facility] QT Interval 348 ms [facility] QTC Interval 401 ms [facility] P [place] 45 degrees [facility] R Wave [place] 9 degrees [facility] T Wave [place] 34 degrees [facility] 12/24/2017 1:01 PM EDT 12/25/2017 5:06 PM EDT Narrative [facility] - 12/25/2017 5:06 PM EDT Normal sinus rhythm Normal ECG When compared with ECG of 17-DEC-2012 12:39, No significant change was found Confirmed by BULAMRO BROWN MD ([id number]) on 12/25/2017 5:06:55 PM us Shubham Armendariz MD ECG ORDERABLES Final Resul t [facility] documented in this encounter Visit Diagnoses Diagnosis Schizophrenia, unspecified type Schizophrenia, unspecified type- Primary documented in this encounter Care Teams Paper Processing Machine Helper Relationship Specialty Start Date End Date You Worthington MD [address] [facility] [address] [place] [address] PCP - General Family Medicine 12/24/17 documented as of this encounter Additional Source Comments The information contained in this document represents components of the legal health record. It is not the complete legal health record.[facility]
--- OUTSIDE RECORDS SUMMARY | 2024-12-01 16:31 | XMS_ITS | Encounter Summary ---
Author Organization [facility] Address [address] [place] [address] Phone Care Team Providers Care Window Glass Installer Name Role Phone Yuo Worthington MD Primary Care Provide r Encounter Details Date Type Department Care Team (Late st Contact Info) Description 07/19/2020 Transcribe Orders Virtual Department 30 [place] [address] Shubham Armendariz MD 50 [place] [address] [email or web address] Therapeutic drug monitoring (Primary Dx) Social History Tobacco Use Types [...] of this encounter Results * ECG 12-LEAD (07/21/2020 11:39 AM EDT) Ventricular Rate EKG/MIN 103 BPM [facility] Atrial Rate 103 BPM [facility] MT Interval 126 ms [facility] QRS Duration 88 ms [facility] QT Interval 328 ms [facility] QTC Interval 429 ms [facility] P [place] 48 degrees [facility] R Wave [place] 38 degrees [facility] T Wave [place] 29 degrees [facility] 07/21/2020 11:3 9 AM EDT 07/21/2020 3:16 PM EDT Narrative [facility] - 07/21/2020 3:16 PM EDT Sinus tachycardia Otherwise normal ECG When compared with ECG of 24-DEC-2017 13:01, No significant change was found Confirmed by EFRA IRWIN MD ([id number]) on 07/21/2020 3:16:57 PM Shubham Armendariz MD ECG ORDERABLES Final Resul t [facility] documented in this encounter Visit Diagnoses Diagnosis Therapeutic drug monitoring- Primary Encounter for therapeutic drug monitoring Therapeutic drug monitoring Encounter for therapeutic drug monitoring documented in this encounter Care Teams Window Glass Installer Relationship Specialty Start Date End Date You Worthington MD [address] [facility] [address] [place] [address] PCP - General Family Medicine 12/24/17 documented as of this encounter Additional Source Comments The information contained in this document represents components of the legal health record. It is not the complete legal health record.[facility]
--- OUTSIDE RECORDS SUMMARY | 2024-12-01 16:31 | XMS_ITS | Encounter Summary ---
Author Organization [email or web address] [facility] Address [address] [facility] 7t [place] [address] Care Team Providers Care Water Carter Name Role Phone Unavailable Primary Care Provider Unavailabl e Encounter Details Date Type Department Care Team (Latest Contact Info) Description 09/08/2018 Abstract [facility] Dental, Provider, DDS Social [...] Description 12/24/2024 2:50 PM EDT Office Visit [facility] Dental [address] [place] [address] Sofia Kuhn LLD 9 [place] [address] documented as of this encounter Visit Diagnoses Not on filedocumented in this encounter
--- OUTSIDE RECORDS SUMMARY | 2024-12-01 16:31 | XMS_ITS | Encounter Summary ---
Author Organization [facility] Address [address] [facility] [address] [place] [phone] Phone Care Team Providers Care Precision Machinist Name Role Phone Kristina Gonzalez MD Primary Care Provider You Worthington MD Primary Care Provide r Encounter Details Date Type Department Care Team (Late st Contact Info) Description 12/17/2017 Transcribe Orders [facility] Laboratory [address] [place] [address] Shubham Armendariz MD [address] [place] [id number] [email or web address] Schizophrenia, unspecified type (Primary Dx) Social [...] documented as of this encounter Results * Hemoglobin A1c (02/12/2018 10:46 AM EST) HEMOGLOBIN A1C 5.3 4.3 - 5.8 % [facility] Blood 02/12/2018 10:4 6 AM EST 02/12/2018 10:48 AM EST us Shubham Armendariz MD LAB BLOOD ORDERABLES Final Result [facility] [address] [place] [address] * (ABNORMAL) Lipid panel (02/12/2018 10:46 AM EST) HDL 47 mg/dL [facility] Comment: Interpretation <40 mg/dL: Low HDL cholesterol (major risk factor for CHD) Greater than or equal to 60 mg/dL: High HDL cholesterol ( negative risk factor for CHD) HDL - cholesterol is affected by a number of factors, e.g. smoking, excerise, hormones, sex and age. CHOLESTEROL 237 0 - 240 mg/dL [facility] TRIGLYCERIDES 241(H) 30 - 160 mg/dL [facility] LDL 142(H) 50 - 129 mg/dL [facility] Comment: LDL levels in terms of risk for coronary heart disease: <100 mg/dL: Optimal 100-129 mg/dL: Near or above optimal 130-159 mg/dL: Borderline high 160-189 mg/dL: High >190 mg/dL: Very High CARDIAC RISK RATIO 5.0 3.4 - 5.0 C [facility] Blood 02/12/2018 10:4 6 AM EST 02/12/2018 10:48 AM EST us Shubham Armendariz MD LAB BLOOD ORDERABLES Final Result [facility] [address] [place] [address] * (ABNORMAL) Comprehensive metabolic panel (02/12/2018 10:46 AM EST) SODIUM 140 133 - 146 mmol/L [facility] POTASSIUM 4.2 3.3 - 5.1 mmol/L [facility] CHLORIDE 103 96 - 108 mmol/L [facility] CO2 25 21 - 35 mmol/L [facility] BUN 8 6 - 19 mg/dL [facility] CREATININE 0.70 0.5 - 1.5 mg/dL [facility] GLUCOSE 100(H) 70 - 99 mg/dL [facility] ALBUMIN 4.4 3.9 - 4.8 g/dL [facility] TOTAL PROTEIN 6.9 6.5 - 8.0 g/dL [facility] CALCIUM 9.1 8.4 - 10.3 mg/dL [facility] ALKALINE PHOSPHATASE 55 39 - 117 U/L [facility] TOTAL BILIRUBIN 0.8 0.0 - 1.2 mg/dL [facility] AST 27 0 - 37 U/L [facility] ALT 31 0 - 40 U/L [facility] GLOBULIN 2.5 1 - 4.8 g/dL [facility] EGFR 114 >59 mL/min/1.7 3m2 [facility] Comment:If patient is black, multiply result by 1.159. Estimated glomerular filtration rate calculated using the CKD-EPI equation. ANION GAP 16 10 - 20 mmol/L [facility] Blood 02/12/2018 10:4 6 AM EST 02/12/2018 10:48 AM EST Shubham Armendariz MD LAB BLOOD ORDERABLES Final Result Performing Organization Address City/[facility]/ZIP Co de Phone Number [address] [address] * (ABNORMAL) TSH (12/17/2017 9:41 AM EDT) TSH 5.99(H) 0.27 - 4.20 uIU/mL [facility] Blood 12/17/2017 9:41 AM EDT 12/17/2017 9:43 AM EDT Shubham Armendariz MD LAB BLOOD ORDERABLES Final Result Performing Organization Address City/[facility]/ZIP Co de Phone Number [address] [address] * Ammonia (12/17/2017 9:41 AM EDT) AMMONIA 29 28 - 80 umol/L [facility] Blood 12/17/2017 9:41 AM EDT 12/17/2017 9:43 AM EDT Shubham Armendariz MD LAB BLOOD ORDERABLES Final Result Performing Organization Address City/[facility]/ZIP Co de Phone Number [address] [address] * (ABNORMAL) Valproic acid (12/17/2017 9:41 AM EDT) VALPROIC ACID 44.1(L) 50.0 - 100.0 ug/mL [facility] Blood 12/17/2017 9:41 AM EDT 12/17/2017 9:43 AM EDT us Shubham Armendariz MD LAB BLOOD ORDERABLES Final Result [facility] [address] [place] [address] documented in this encounter Visit Diagnoses Diagnosis Schizophrenia, unspecified type- Primary documented in this encounter Care Teams Precision Machinist Relationship Specialty Start Date End Date Kristina Gonzalez MD PCP - General Family Medicine 11/12/17 12/23/17 You Worthington MD [address] [facility] [address] [place] [address] PCP - General Family Medicine 12/24/17 documented as of this encounter Additional Source Comments The information contained in this document represents components of the legal health record. It is not the complete legal health record.[facility]
--- OUTSIDE RECORDS SUMMARY | 2024-12-01 16:31 | XMS_ITS | Encounter Summary ---
Author Organization [facility] Address [address] [facility] [address] [place] [address] Phone Care Team Providers Care Information Security Architect Name Role Phone You Worthington MD Primary Care Provide r Encounter Details Date Type Department Care Team (Late st Contact Info) Description 06/14/2023 Procedure Pass [facility] Endoscopy Admitting Dept Virtual Department 30 [place] [address] Social History Tobacco Use Types Packs/Day Years Used Date Smoking Tobacco: Never Alcohol Use Standard Drinks/Week Comments Never 0 [...] as food, clothing, or medical care? No 06/14/2023 In the past 12 months have y ou been in a relationship with a person who hurts, threatens, or tries to control you? No 06/14/2023 Are you denied basic needs s uch as food, clothing, or medical care? No 06/14/2023 In the past 12 months have y ou been in a relationship with a person who hurts, threatens, or tries to control you? No 06/14/2023 Sex and Gender Information Value Date Recorded Sex Assigned at Not on file Legal Sex Male 9:32 PM EDT Gender Identity Not on file Sexual Orientation Not on file documented as of this encounter Plan of Treatment Not on file documented as of this encounter Visit Diagnoses Not on filedocumented in this encounter Care Teams Information Security Architect Relationship Specialty Start Date End Date You Worthington MD [address] [address] PCP - General Family Medicine 12/24/17 documented as of this encounter Additional Source Comments The information contained in this document represents components of the legal health record. It is not the complete legal health record.[facility]
--- OUTSIDE RECORDS SUMMARY | 2024-12-01 16:31 | XMS_ITS | Encounter Summary ---
Author Organization [employer] [facility] Address [address] [facility] 7t [place] [address] Care Team Providers Care Ceramic Research Engineer Name Role Phone Unavailable Primary Care Provider Unavailabl e Encounter Details Date Type Department Care Team (Latest Contact Info) Description 03/05/2018 Abstract [facility] Dental, Provider, DDS Social [...] Description 12/24/2024 2:50 PM EDT Office Visit [place] [facility] Dental [address] [place] [address] Sofia Kuhn LLD 9 [place] [address] documented as of this encounter Visit Diagnoses Not on filedocumented in this encounter
--- OUTSIDE RECORDS SUMMARY | 2024-12-01 16:31 | XMS_ITS | Encounter Summary ---
Author Organization [facility] Address [address] [facility] [address] [place] [address] Phone Care Team Providers Care Manager Landscape Name Role Phone Kristina Gonzalez MD Primary Care Provider Kristina Gonzalez MD Primary Care Provider You Worthington MD Primary Care Provide r Encounter Details Date Type Department Care Team (Late st Contact Info) Description 02/20/2017 Transcribe Orders [facility] Laboratory [address] [place] [address] System, Provider Not In, [facility] [address] [address] Schizophrenia, unspecified type (Primary Dx); Schizoaffective disorder, depressive type Social History Tobacco Use Types Packs/Day Years [...] encounter Results * (ABNORMAL) CBC and differential (02/20/2017 2:11 PM EST) WBC 8.05 3.40 - 11.20 K/uL [facility] RBC 4.80 4.50 - 5.50 M/uL [facility] HGB 15.0 13.0 - 17.0 g/dL [facility] HCT 43.9 40.0 - 51.0 % [facility] PLT 197 130 - 400 K/uL [facility] MCV 91.5 79.0 - 98.0 fL [facility] MCH 31.3 27.0 - 34.8 pg [facility] MCHC 34.2 31.5 - 36.0 g/dL [facility] RDW 12.8 10.8 - 14.6 % [facility] MPV 10.4 9.4 - 12.4 fl [facility] NRBC 0.00 /100 WBCs [facility] ABSOLUTE NRBC 0.00 K/uL [facility] DIFF METHOD Auto [facility] NEUTS 59.2 45.30 - 77.70 % [facility] LYMPHS 31.8 12.30 - 39.70 % [facility] MONOS 7.7 4.10 - 12.80 % [facility] EOS 0.1 0 - 7.2 % [facility] BASOS 0.6 0 - 2.80 % [facility] Granulocytes, immature (%) 0.6 0.0 - 0.9 % [facility] ABSOLUTE NEUTS 4.76 1.40 - 7.70 K/uL [facility] ABSOLUTE LYMPHS 2.56 0.60 - 3.20 K/uL [facility] ABSOLUTE MONOS 0.62(H) 0.11 - 0.59 K/uL [facility] ABSOLUTE EOS 0.01 0.01 - 0.50 K/uL [facility] ABSOLUTE BASOS 0.05 0.00 - 0.08 K/uL [facility] Granulocytes, immature 0.05 0.00 - 0.05 K/uL [facility] Blood 02/20/2017 2:11 PM EST 02/20/2017 2:16 PM EST us Provider Not In System PhD LAB BLOOD ORDERABLES Final Result [facility] [address] [place] [address] documented in this encounter Visit Diagnoses Diagnosis Schizophrenia, unspecified type- Primary Schizoaffective disorder, depressive type Schizoaffective disorder, unspecified condition documented in this encounter Care Teams Manager Landscape Relationship Specialty Start Date End Date Kristina Gonzalez MD PCP - General Family Medicine 01/23/17 11/11/17 Kristina Gonzalez MD PCP - General Family Medicine 11/12/17 12/23/17 You Worthington MD [address] [address] PCP - General Family Medicine 12/24/17 documented as of this encounter Additional Source Comments The information contained in this document represents components of the legal health record. It is not the complete legal health record.[facility]
--- OUTSIDE RECORDS SUMMARY | 2024-12-01 16:31 | XMS_ITS | Encounter Summary ---
Author Organization [email or web address] [facility] Address [address] [facility] 7t [place] [address] Care Team Providers Care A&P Mechanic Name Role Phone Unavailable Primary Care Provider Unavailabl e Encounter Details Date Type Department Care Team (Latest Contact Info) Description 01/06/2020 Abstract [facility] Dental, Provider, DDS Social [...] Description 12/24/2024 2:50 PM EDT Office Visit [facility] Dental [address] [place] [address] Sofia Kuhn LLD 9 [place] [address] documented as of this encounter Visit Diagnoses Not on filedocumented in this encounter
--- OUTSIDE RECORDS SUMMARY | 2024-12-01 16:31 | XMS_ITS | Clinical Summary ---
Author Organization [employer] Address [address] [place] [address] 7t [place] [address] Care Team Providers Care Insurance Risk Analyst Name Role Phone Unavailable Primary Care Provider Unavailabl e Allergies No known active allergies Medications cloZAPine (Clozaril) 100 MG tablet TAKE 1 TABLET BY MOUTH EVERY MORNING AND TAKE 2 TABLETS EVERY EVENING 07/19/2022 Active divalproex (Depakote) 500 MG EC tablet Take 500 mg by mouth 2 times daily. 06/25/2022 Active Active Problems No known active problems Social History Tobacco Use Types Packs/Day Years Used Date Smoking Tobacco: Never Passive Smoke Exposure: Never Smokeless Tobacco: Never Tobacco Cessation:Counseling Given: Not Answered Alcohol Use Standard Drinks/Week Comments Never 0 (1 standard drink = 0.6 oz pur e alcohol) Sex and Gender Information Value Date Recorded Sex Assigned at Male 01/04/2022 7:03 PM EDT Legal Sex Male 5:36 PM EDT Gender Identity Male 07/10/2022 1:31 PM EDT Sexual Orientation Straight 07/10/2022 1: 31 PM EDT Last Filed Vital Signs Vital Sign Reading Time Taken Comments Blood Pressure 128/90 08/25/2024 2:55 PM EDT Pulse 100 08/25/2024 2:55 PM EDT Temperature - - Respiratory Rate - - Oxygen Saturation - - Inhaled Oxygen Concentration - - Weight - - Height - - Body Mass Index - - Plan of Treatment Upcoming Encounters Date Type Department Care Team (Late st Contact Info) Description 12/24/2024 2:50 PM EDT Office Visit Nick [facility] [address] [place] [address] Sofia Kuhn LLD [address] [place] [address] Health Maintenance Due Date Last Done Comments CT Colonography 1972 Depression Screening 1972 FIT DNA/Cologuard 1972 FIT 1972 FOBT 1972 HIV Screening 1972 Lipid Panel 1972 SDOH Screening 1972 Sigmoidoscopy 1972 Disability Screening 1972 Alcohol/Substance Use Screening 1984 Family Planning (PISQ) 1987 Hepatitis C Screening 1990 Hepatitis B Vaccines (1 of 3 - 19+ 3-dose series) 1991 Dental X-Ray: Bitewings 07/25/2024 07/25/19 24, 07/25/2022, 01/10/2021, Additional history exists Dental Oral Exam 10/29/2024 04/30/2024, 09/2023, 07/25/2023, Additional history exists Influenza Vaccine (#1) 2024 , 12/10/2023, 12/12/2022, Additional history exists Tobacco Screening 01/08/2025 01/09/2024 Dental Prophylaxis 02/25/2025 08/25/2024, 0 04/30/2024, 01/09/2024, Additional history exists Dental X-Ray: Full Mouth 07/26/2025 023, 07/09/2017, 12/26/2015, Additional history exists DTaP/Tdap/Td Vaccines (4 - Td or Tdap) 01/25/2032 01/24/2022, 01/24/2022, 11/21/2010, Additional history exists Colonoscopy 07/09/2034 07/09/2024, 07/09/2024 Colorectal Cancer Screening 07/09/2034 RSV Patients and Patients Aged 60 years or older (1 - 1-dose 75+ series) 2047 COVID-19 Vaccine Completed 12/03/2023, , 11/21/2021, Additional history exists Zoster Vaccines Completed 06/24/2024, 04/25/2024 Pneumococcal Vaccine: 50+ Years Completed 07/24/2024, 02/03/2013 HIB Vaccines Aged Out No longer eligi ble based on patient's age to complete this topic HPV Vaccines Aged Out No longer eligi ble based on patient's age to complete this topic Hepatitis A Vaccines Aged Out No long er eligible based on patient's age to complete this topic IPV Vaccines Aged Out No longer eligi ble based on patient's age to complete this topic Meningococcal B Vaccine Aged Out No l onger eligible based on patient's age to complete this topic Meningococcal Vaccine Aged Out No lorna izaiah eligible based on patient's age to complete this topic RSV under 20 months Aged Out No longe r eligible based on patient's age to complete this topic Rotavirus Vaccines Aged Out No longer eligible based on patient's age to complete this topic Procedures Procedure Name Priority Date/Time Associated Diagnosis Comments Full PROPHYLAXIS - ADULT Routine 025 3:00 PM EDT PERIODIC ORAL EVALUATION - ESTABLISHED PATIENT Routine 04/30/2024 1:00 PM EST BITEWINGS - 4 RADIOGRAPHIC IMAGES Routine 07/25/2023 3:00 PM EDT INTRAORAL - COMPLETE SERIES OF RADIOGRAPHIC IMAGES Routine 07/25/2022 3:00 PM EDT Encounter for dental examination from Last 3 Months or Most Recently Relevant to Health Maintenance Insurance [facility] AD[place]
--- OUTSIDE RECORDS SUMMARY | 2024-12-01 16:31 | XMS_ITS | Encounter Summary ---
Author Organization [facility] Address [address] [facility] [address] [place] [address] Phone Care Team Providers Care Molecular Genetic Pathologist Name Role Phone You Worthington MD Primary Care Provide r Encounter Details Date Type Department Care Team (Late st Contact Info) Description 08/19/2019 Transcribe Orders [facility] Laboratory [address] [place] [address] Shubham Armendariz MD [address] [place] [address] [email or web address] Type 2 diabetes mellitus without complication, unspecified whether halfway insulin use (Primary Dx); Schizoaffective disorder, unspecified type Social History Tobacco Use Types Packs/Day [...] Procedure Name Priority Date/Time Associated Diagnosis Comments MICROALBUMIN/CREATI NINE RATIO, RANDOM URINE Routine 08/19/2019 1:45 PM EDT Type 2 diabetes mellitus without complication, unspecified whether halfway insulin use Schizoaffective disorder, unspecified type documented in this encounter Results * Microalbumin/creatinine ratio, random urine (08/19/2019 1:45 PM EDT) URINE MICROALBUMIN 1.3 0 - 2.3 mg/dL [facility] URINE CREATININE 218 mg/dL [facility] MICROALB/CRE RATIO 6.0 0 - 20 mg/g Cre [facility] Urine (Urine) 08/19/2019 1:4 5 PM EDT 08/19/2019 2:18 PM EDT us Shubham Armendariz MD URINE ORDERABLES Final Resu lt [facility] [address] [place] [address] documented in this encounter Visit Diagnoses Diagnosis Type 2 diabetes mellitus without complication, unspecified whether halfway insulin use- Primary Schizoaffective disorder, unspecified type documented in this encounter Care Teams Molecular Genetic Pathologist Relationship Specialty Start Date End Date You Worthington MD [address] [address] PCP - General Family Medicine 12/24/17 documented as of this encounter Additional Source Comments The information contained in this document represents components of the legal health record. It is not the complete legal health record.[facility]
--- OUTSIDE RECORDS SUMMARY | 2024-12-01 16:31 | XMS_ITS | Encounter Summary ---
Author Organization [facility] Address [address] [facility] [address] [place] [address] Phone Care Team Providers Care Vacuum Tank Tender Name Role Phone You Worthington MD Primary Care Provide r Encounter Details Date Type Department Care Team (Late st Contact Info) Description 07/09/2024 Procedure Pass [facility] Endoscopy Admitting Dept Virtual Department [address] [place] [address] Social History Tobacco Use Types Packs/Day Years Used Date Smoking Tobacco: Former Cigarettes Q uit: 2018 Smokeless Tobacco: Never Alcohol Use Standard Drinks/Week Comments [...] on filedocumented in this encounter Care Teams Vacuum Tank Tender Relationship Specialty Start Date End Date You Worthington MD [address] [address] PCP - General Family Medicine 12/24/17 documented as of this encounter Additional Source Comments The information contained in this document represents components of the legal health record. It is not the complete legal health record.[facility]
== END 2024-12-01 15:33 | disposition home or self-care (01) ==
LOC: HO.HVS 15:09
PROVIDERS: Visit Provider Surgery Vascular Surgery
DX: I83.12 Varicose veins of left lower extremity with inflammation (principal)
CPT/HCPCS: 99204

== ENCOUNTER → 2024-12-01 15:08 | Outpatient (BNVA) | payer MEDICARE, MEDICAID, SELFPAY | PROVIDERS: Visit Provider Surgery Vascular Surgery | DX: I83.12 Varicose veins of left lower extremity with inflammation (principal) | CPT/HCPCS: 99202 ==

== ENCOUNTER 2024-12-30 10:33 | Outpatient (REF) | payer MEDICARE, MEDICAID, SELFPAY ==
--- NOTE | ~2024-12-30 | US_ITS ---
EXAMINATION: US LOWER EXTREMITY VENOUS (REFLUX EXAM), BILATERAL CLINICAL INFORMATION: Varicose veins of the lower extremity with inflammation COMPARISON: None. TECHNIQUE: Color flow triplex imaging and compression Doppler was performed to evaluate both the deep and the superficial systems bilaterally. To evaluate the superficial system, the examination was performed in the upright position. Color-flow Doppler ultrasound and compression ultrasound were utilized. In addition, maneuvers were utilized to demonstrate reflux. FINDINGS: 1. DEEP VENOUS ULTRASOUND OF THE RIGHT LOWER EXTREMITY: Common Femoral Vein: Compressible, normal respiratory variation and augmented flow. Femoral Vein: The femoral vein is partially compressible in the mid thigh. There is hypoechoic material in the deep wall of the vessel. Venous flow is present on color Doppler and duplex. Popliteal Vein: Compressible, normal augmentation. Deep Reflux: Mid femoral vein: 1900 ms Popliteal vein: 1550 ms 2. SUPERFICIAL ULTRASOUND WITH DOPPLER OF RIGHT LOWER EXTREMITY: GREAT SAPHENOUS VEIN: Saphenofemoral Junction: 0.7 cm; Reflux: 0 ms Proximal Thigh: 0.6 cm; Reflux: 1300 ms Mid Thigh: 0.6 cm; Reflux: 1000 ms Distal Thigh: 0.4 cm; Reflux: 0 ms At Knee: 0.3 cm; Reflux: 0 ms Below Knee/Proximal Calf: 0.3 cm; Reflux: 0 ms Mid Calf: 0.3 cm; Reflux: 2350 ms Ankle/Distal Calf: 0.5 cm; Reflux: 0 ms Lateral accessory GREAT SAPHENOUS VEIN: Saphenofemoral Junction: 0.2 cm; Reflux: 0 ms Mid Thigh: 0 point cm; Reflux: 0 ms SMALL SAPHENOUS VEIN: Drainage: Popliteal vein Saphenopopliteal Junction: 0.4 cm; Reflux: 0 ms Mid calf: 0.2 cm; Reflux: 0 ms Distal: 1 cm; Reflux: 0 ms VEIN OF GIACOMINI: Size: NA cm Reflux: NA ms PERFORATORS: Location: Greater saphenous vein, proximal calf Size: 0.5 cm Reflux: 0 ms VARICOSITIES > 3mm: Location: Great saphenous vein, distal thigh Size: 0.6 cm Reflux: 0 ms Location: The great saphenous vein, proximal calf Size: 0.6 cm Reflux: 0 ms 3. DEEP VENOUS ULTRASOUND OF THE LEFT LOWER EXTREMITY: Common Femoral Vein: Compressible, normal respiratory variation and augmented flow. Femoral Vein: Compressible, normal color flow and augmentation. Popliteal Vein: Compressible, normal augmentation. Deep Reflux: Mid femoral vein: 1500 ms Duplicated femoral vein, mid thigh: 1100 ms Popliteal vein: 1200 ms 4. SUPERFICIAL ULTRASOUND WITH DOPPLER OF LEFT LOWER EXTREMITY: GREAT SAPHENOUS VEIN: Saphenofemoral Junction: 0.9 cm; Reflux: 900 ms Proximal Thigh: 0.8 cm; Reflux: 0 ms Mid Thigh: 0.7 cm; Reflux: 0 ms Distal Thigh: 0.8 cm; Reflux: 0 ms At Knee: 0.7 cm; Reflux: 0 ms Below Knee/Proximl calf: 0.8 cm; Reflux: 0 ms Mid Calf: 0.6 cm; Reflux: 0 ms Distal Calf/Ankle: 0.4 cm; Reflux: 600 ms Lateral accessory GREAT SAPHENOUS VEIN: Saphenofemoral Junction: 0.3 cm; Reflux: 0 ms Mid Thigh: 0.3 cm; Reflux: 0 ms SMALL SAPHENOUS VEIN: Drainage: Obstetrical vein Saphenopopliteal Junction: 0.3 cm; Reflux: 0 ms Mid calf: 0.1 cm; Reflux: 0 ms Distal calf: 0.2 cm; Reflux: 0 ms VEIN OF GIACOMINI: Size: 0.4 Reflux: 0 PERFORATORS: Location: Small saphenous vein, distal Size: 0.2 cm Reflux: 0 ms Location: Greater saphenous vein, proximal calf Size: 0.2 cm Reflux: 0 ms Location: Greater saphenous vein, proximal calf 41 cm above calcaneus Size: 0.4 cm Reflux: 2400 ms Location: Greater saphenous vein, mid calf Size: 0.3 cm Reflux: 0 ms VARICOSITIES > 3mm: Location: Great saphenous vein, distal thigh Size: 0.3 cm Reflux: 0 ms Location: Great saphenous vein, distal thigh Size: 0.4 cm Reflux: 0 ms Location: Great saphenous vein, at knee Size: 0.4 cm Reflux: 0 ms Location: Great saphenous vein, proximal calf Size: 0.4 cm Reflux: 0 ms Location: Great saphenous vein, proximal calf Size: 0.5 cm Reflux: 0 ms Location: Great saphenous vein, mid calf Size: 0.4 cm Reflux: 0 ms US/US venous duplex LE BI IMPRESSION: Right: Nonocclusive DVT is present in the femoral vein in the mid thigh. Dr. Renate was notified at 11:10 AM eastern time by the dental technologist. Deep and superficial venous incompetence. Left: Deep and superficial venous incompetence. Electronically signed by: Jamaal Uriostegui MD 12/30/2024 12:31 PM EDT
--- OUTSIDE RECORDS SUMMARY | 2024-12-30 13:05 | XMS_ITS | Clinical Summary ---
Author Organization [employer] Address [address] [place] [address] 7t [place] [address] Care Team Providers Care Replanting Machine Operator Name Role Phone Unavailable Primary Care Provider [...] Care Team (Late st Contact Info) Description 01/26/2025 3:50 PM EST Office Visit Nick [facility] Dental [address] [place] [address] Sofia Kuhn LLD [address] [place] [address] Health Maintenance Due Date Last Done Comments [...]
--- OUTSIDE RECORDS SUMMARY | 2024-12-30 13:05 | XMS_ITS | Encounter Summary ---
Author Organization [facility] Address [address] [facility] [address] [place] [address] Phone Care Team Providers Care Vp Foundation Name Role Phone You Worthington MD Primary Care Provide r Encounter Details Date Type Department Care Team ([facility] st Contact Info) Description 02/17/2020 Procedure Pass [facility], [address] [address] Social History Tobacco Use Types Packs/Day Years [...] on filedocumented in this encounter Care Teams Vp Foundation Relationship Specialty Start Date End Date You Worthington MD [address] [facility] [address] [place] [address] PCP - General Family Medicine 12/24/17 documented as of this encounter Additional Source Comments The information contained in this document represents components of the legal health record. It is not the complete legal health record.[facility]
--- OUTSIDE RECORDS SUMMARY | 2024-12-30 13:05 | XMS_ITS | Encounter Summary ---
Author Organization [facility] Address [address] [facility] [address] [place] [address] Phone Care Team Providers Care Wafer Slicer Name Role Phone You Worthington MD Primary Care Provide r Reason for Referral * MRI/CAT Scan - Closed Specialty Diagnoses / Procedures Referred By Duglas ovalle Referred To Contact Radiology Diagnoses Lumbar radiculopathy Procedures MRI Lumbar Spine Roderick Vitale DO Phone: tel: fax: mailto:[email or web address] Referral ID Status Reason Start Date Expiration Date Visits Re quested Visits Authorized [id number] Closed 02/17/2020 02/16/2021 1 1 Encounter Details Date Type Department Care Team (Latest Contact Info) Description 02/17/2020 Ancillary Orders Virtual Department 30 [place] [address] Roderick Vitale DO [address] [place] [address] [email or web address] Social History Tobacco Use Types [...] unspecified documented in this encounter Care Teams Wafer Slicer Relationship Specialty Start Date End Date You Worthington MD [address] [address] PCP - General Family Medicine 12/24/17 documented as of this encounter Additional Source Comments The information contained in this document represents components of the legal health record. It is not the complete legal health record.[facility]
--- OUTSIDE RECORDS SUMMARY | 2024-12-30 13:06 | XMS_ITS | Encounter Summary ---
Author Organization [facility] Address [address] [facility] [address] [place] [address] Phone Care Team Providers Care Academic Affairs Manager Name Role Phone Kristina Gonzalez MD Primary Care Provider Kristina Gonzalez MD Primary Care Provider You Worthington MD Primary Care Provide r Encounter Details Date Type Department Care Team (Late st Contact Info) Description 03/21/2017 Transcribe Orders [facility] Laboratory [address] [place] [address] System, Provider Not In, [facility] [address] [address] Depression, unspecified depression type (Primary Dx) Social [...] EST) WBC 8.13 3.40 - 11.20 K/uL [facility] RBC 4.51 4.50 - 5.50 M/uL [facility] HGB 14.1 13.0 - 17.0 g/dL [facility] HCT 42.7 40.0 - 51.0 % [facility] PLT 183 130 - 400 K/uL [facility] MCV 94.7 79.0 - 98.0 fL [facility] MCH 31.3 27.0 - 34.8 pg [facility] MCHC 33.0 31.5 - 36.0 g/dL [facility] RDW 13.0 10.8 - 14.6 % [facility] MPV 10.6 9.4 - 12.4 fl [facility] NRBC 0.00 /100 WBCs [facility] ABSOLUTE NRBC 0.00 K/uL [facility] DIFF METHOD Auto [facility] NEUTS 61.7 45.30 - 77.70 % [facility] LYMPHS 29.0 12.30 - 39.70 % [facility] MONOS 8.2 4.10 - 12.80 % [facility] EOS 0.0 0 - 7.2 % [facility] BASOS 0.6 0 - 2.80 % [facility] Granulocytes, immature (%) 0.5 0.0 - 0.9 % [facility] ABSOLUTE NEUTS 5.01 1.40 - 7.70 K/uL [facility] ABSOLUTE LYMPHS 2.36 0.60 - 3.20 K/uL [facility] ABSOLUTE MONOS 0.67(H) 0.11 - 0.59 K/uL [facility] ABSOLUTE EOS 0.00(L) 0.01 - 0.50 K/uL [facility] ABSOLUTE BASOS 0.05 0.00 - 0.08 K/uL [facility] Granulocytes, immature 0.04 0.00 - 0.05 K/uL [facility] Blood 03/21/2017 2:10 PM EST 03/21/2017 2:13 PM EST us Provider Not In System PhD LAB BLOOD ORDERABLES Final Result [facility] [address] [place] [address] documented in this encounter Visit Diagnoses Diagnosis Depression, unspecified depression type- Primary documented in this encounter Care Teams Academic Affairs Manager Relationship Specialty Start Date End Date Kristina Gonzalez MD PCP - General Family Medicine 01/23/17 11/11/17 Kristina Gonzalez MD PCP - General Family Medicine 11/12/17 12/23/17 You Worthington MD [address] [address] PCP - General Family Medicine 12/24/17 documented as of this encounter Additional Source Comments The information contained in this document represents components of the legal health record. It is not the complete legal health record.[facility]
--- OUTSIDE RECORDS SUMMARY | 2024-12-30 13:06 | XMS_ITS | Clinical Summary ---
Author Organization [facility] Address [address] [facility] [address] [place] [address] Phone Care Team Providers Care Marine Engine Machinist Apprentice Name Role Phone You Worthington MD [...] - 11/05/2024 11:59 PM EDT Hospital Encounter [facility] Laboratory [address] [place] [address] Haroon Reddy MD Discharge Disposition: Home or Self Care 11/02/2024 Orders Only [facility] Specimen Processing [address] [place] [address] Haroon Reddy MD Schizoaffective disorder, depressive type (Primary Dx); Drug therapy 10/29/2024 2:03 PM EDT - 10/29/2024 11:59 PM EDT Hospital Encounter [facility] Laboratory [address] [place] [address] Haroon Reddy MD Discharge Disposition: Home or Self Care 10/29/2024 Transcribe Orders [facility] Laboratory [address] [place] [address] Haroon Reddy MD Schizoaffective disorder, depressive type (Primary Dx); Pharmacologic therapy 10/28/2024 3:48 PM EDT - 10/28/2024 11:59 PM EDT Hospital Encounter [facility] [address] [place] [address] Haroon Reddy MD Discharge Disposition: Home or [...] 2024 , 12/12/2022, 12/25/2021, Additional history exists COVID-19 VACCINE ( season) 2024 12/03/2023, 11/21/2022, 11/21/2021, Additional history exists ABSOLUTE NEUTROPHIL COUNT (ANC) 11/26/2024 10/29/2024, 07/30/2024, 05/11/2024, Additional history exists COLONOSCOPY 07/09/2025 07/09/2024, 06/14/2023 COLORECTAL CANCER SCREENING 07/09/2025 VALPROIC ACID (DEPAKENE) LEVEL 11/05/2025 11/05/2024, 09/11/2023, 07/17/2022, Additional history exists LIPID PANEL 07/18/2026 07/18/2021, 07/03, 08/19/2019, Additional history exists Adult Td,Tdap Booster 01/25/2032 01/24/2022 , 11/21/2010, 07/02/1998 RSV VACCINE (1 - 1-dose 75+ series) 2047 ZOSTER VACCINES Completed 06/24/2024, 04/25/2024 HEPATITIS A [...] this topic Medical Devices Implanted Type Area Straw Hat Presser Device Identifier Shelf Expiration Date Model / Serial / Lot Clip Hemostasis 360deg 235cm Resolution 360 Latex Free 2.8mm Channel Bx/20ea - [id number] Implanted:Qty: 1 on 06/14/2023 by Tex Callahan MD at [facility] Sigmoid [employer] VANIA [id number] / / Clip Hemostasis 16mm Cs/5ea - [id number] Implanted:Qty: 1 on 07/09/2024 by Tex Callahan MD at [facility] Extra Life 117 / / Procedures Procedure Name Priority [...] ALKALINE PHOSPHATASE 71 39 - 117 U/L [facility] TOTAL BILIRUBIN 0.5 0.0 - 1.2 mg/dL [facility] DIRECT BILIRUBIN 0.1 0.0 - 0.2 mg/dL [facility] Bilirubin (Indirect) NOT CALCULATED 0 - 1.5 mg/dL [facility] AST 25 0 - 37 U/L [facility] ALT 27 0 - 40 U/L [facility] TOTAL PROTEIN 7.2 6.5 - 8.0 g/dL [facility] ALBUMIN 4.5 3.9 - 4.8 g/dL [facility] GLOBULIN 2.7 1 - 4.8 g/dL [facility] A/G Ratio 1.67 1.00 - 4.80 RATIO [facility] Blood 11/05/2024 2:34 PM EDT 11/05/2024 2:46 PM EDT us Haroon Reddy MD LAB BLOOD ORDERABLES Final Result Performing Organization Address City/[facility]/ZIP Co de Phone Number [address] [address] * Valproic acid (11/05/2024 2:34 PM EDT) VALPROIC ACID 58.3 50.0 - 100.0 ug/mL [facility] Blood 11/05/2024 2:34 PM EDT 11/05/2024 2:46 PM EDT us Haroon Reddy MD LAB BLOOD ORDERABLES Final Result [address] [address] * CBC and differential (10/29/2024 2:10 PM EDT) WBC 8.45 4.00 - 11.00 K/uL [facility] RBC 5.03 4.50 - 5.90 M/uL [facility] HGB 15.6 13.5 - 17.5 g/dL [facility] HCT 47.3 41.0 - 53.0 % [facility] PLT 175 150 - 450 K/uL [facility] MCV 94.0 80.0 - 100.0 fL [facility] MCH 31.0 27.0 - 31.0 pg [facility] MCHC 33.0 32.0 - 36.0 g/dL [facility] RDW 12.9 11.5 - 14.5 % [facility] MPV 11.2 8.4 - 12.0 fL [facility] NRBC 0.00 0.00 /100 WBCs [facility] ABSOLUTE NRBC 0.00 0.00 K/uL [facility] DIFF METHOD Auto [facility] NEUTS 63.2 48.0 - 76.0 % [facility] LYMPHS 29.1 18.0 - 41.0 % [facility] MONOS 6.3 4.0 - 11.0 % [facility] EOS 0.1 0.0 - 5.0 % [facility] BASOS 0.6 0.0 - 1.5 % [facility] Granulocytes, immature (%) 0.7 0.0 - 0.9 % [facility] ABSOLUTE NEUTS 5.34 1.92 - 7.60 K/uL [facility] ABSOLUTE LYMPHS 2.46 0.72 - 4.10 K/uL [facility] ABSOLUTE MONOS 0.53 0.16 - 1.10 K/uL [facility] ABSOLUTE EOS 0.01 0.00 - 0.50 K/uL [facility] ABSOLUTE BASOS 0.05 0.00 - 0.15 K/uL [facility] Granulocytes, immature 0.06 0.00 - 0.09 K/uL [facility] Blood 10/29/2024 2:10 PM EDT 10/29/2024 2:13 PM EDT us Haroon Reddy MD LAB BLOOD ORDERABLES Final Result [facility] [address] [place], [place] [id number] * ENDOSCOPY, COLON (07/09/2024 10:18 AM EDT) Narrative Transcriptions Tex Callahan MD - 07/09/2024 10:18 AM EDT [facility] Patient Name: Gopi Estes Attending MD:: TEX CALLAHAN MD, Procedure Date: 07/09/2024 10:18 AM Date of : 1970 Age: 54 Admit Type: Outpatient Gender: Male Room: [place] [address] Referring MD: You Worthington Exam Type: Colonoscopy [...] bleeding,one hemostatic clip was successfully placed. Clip magnet maker: [employer]. There was nobleeding at the end of [...] 10:18 AM Procedure Code(s): --- Professional --- 77670, Colonoscopy, flexible; with removal of tumor(s), polyp(s), or other lesion(s) by snare technique --- Technical --- 16422, Colonoscopy, flexible; with removal of tumor(s), polyp(s), or other lesion(s) by snare technique CPT copyright 2021 [employer]. All rights reserved. The codes documented in this report are preliminary and upon electronics inspector reviewmay be revised to meet current compliance requirements. Procedure Date: 07/09/2024 10:18:[address] [place] [address] us You Weinstein MD GI PROCEDURE ORDERABL ES Final Result * (ABNORMAL) Lipid panel (07/18/2021 9:22 AM EDT) HDL 40 mg/dL [facility] Comment: Interpretation <40 mg/dL: Low HDL cholesterol (major risk factor for CHD) Greater than or equal to 60 mg/dL: High HDL cholesterol ( negative risk factor for CHD) HDL - cholesterol is affected by a number of factors, e.g. smoking, excerise, hormones, sex and age. CHOLESTEROL 224 0 - 240 mg/dL [facility] TRIGLYCERIDES 322(H) 30 - 160 mg/dL [facility] LDL 120 50 - 129 mg/dL [facility] Comment: LDL levels in terms of risk for coronary heart disease: <100 mg/dL: Optimal 100-129 mg/dL: Near or above optimal 130-159 mg/dL: Borderline high 160-189 mg/dL: High >190 mg/dL: Very High CARDIAC RISK RATIO 5.6(H) 3.4 - 5.0 C [facility] Blood 07/18/2021 9:22 AM EDT 07/18/2021 9:36 AM EDT Shubham Armendariz MD LAB BLOOD ORDERABLES Final Result [facility] [address] [place] [address] from Last 3 Months or Most Recently Relevant to Health Maintenance Insurance MEDICARE PART A & B [facility] [address] [place] [address] MEDICARE PART A & B [facility] Member Subscriber Plan / Payer ( fective 2016-) Name:Gopi Estes Relation to Subscriber:Self Name:Gopi Estes Payer ID:[id number] Group ID:Not on file Type:Medicaid Address: [place] [id number] MEDICARE PART A & B [facility] MEDIC[facility] PART A & B [facility] MEDICARE PART A & B [facility] PART A & B [facility] MEDICARE PART A & B [place] MED[place] PART A & B [facility] PART A & B Member Subscriber Plan / Payer ( fective 1992-Present) Name:EstesGopi Member ID:[id number] Relation to Subscriber:Self Name:Gopi Estes Subscriber ID:[id number] Payer ID:[id number] Group ID:Not on file Type:Medicare Address: [employer] [address] [place] [address] [facility] Care Teams Marine Engine Machinist Apprentice Relationship Specialty Start Date End Date You Worthington MD [address] [address] PCP - General Family Medicine 12/24/17 Additional Source Comments The information contained in this document represents components of the legal health record. It is not the complete legal health record.[facility]
--- OUTSIDE RECORDS SUMMARY | 2024-12-30 13:06 | XMS_ITS | Encounter Summary ---
Author Organization [facility] Address [address] [facility] [address] [place] [address] Phone Care Team Providers Care Translator Name Role Phone You Worthington MD Primary Care Provide r Encounter Details Date Type Department Care Team (Late st Contact Info) Description 08/19/2019 Transcribe Orders [facility] Laboratory [address] [place] [address] Shubham Armendariz MD [address] [place] [address] [email or web address] Type 2 diabetes mellitus without complication, unspecified whether extermination supervisor insulin use (Primary Dx); Schizoaffective disorder, unspecified [...] 2 diabetes mellitus without complication, unspecified whether detention insulin use Schizoaffective disorder, unspecified type documented in this encounter Results * Microalbumin/creatinine ratio, random urine (08/19/2019 1:45 PM EDT) URINE MICROALBUMIN 1.3 0 - 2.3 mg/dL [facility] URINE CREATININE 218 mg/dL [facility] MICROALB/CRE RATIO 6.0 0 - 20 mg/g Cre [facility] Urine (Urine) 08/19/2019 1:4 5 PM EDT 08/19/2019 2:18 PM EDT us Shubham Armendariz MD URINE ORDERABLES Final Resu lt [facility] [address] [place] [address] documented in this encounter Visit Diagnoses Diagnosis Type 2 diabetes mellitus without complication, unspecified whether detention insulin use- Primary Schizoaffective disorder, unspecified type documented in this encounter Care Teams Translator Relationship Specialty Start Date End Date You Worthington MD [address] [address] PCP - General Family Medicine 12/24/17 documented as of this encounter Additional Source Comments The information contained in this document represents components of the legal health record. It is not the complete legal health record.[facility]
--- OUTSIDE RECORDS SUMMARY | 2024-12-30 13:06 | XMS_ITS | Encounter Summary ---
Author Organization [facility] Address [address] [facility] [address] [place] [address] Phone Care Team Providers Care Lieutenant Fire Fighter Name Role Phone Kristina Gonzalez MD Primary Care Provider Kristina Gonzalez MD Primary Care Provider You Worthington MD Primary Care Provide r Encounter Details Date Type Department Care Team (Late st Contact Info) Description 02/20/2017 Transcribe Orders [facility] Laboratory [address] [place] [address] System, Provider Not In, PhD Partners [address] [address] Schizophrenia, unspecified type (Primary Dx); Schizoaffective disorder, [...] EST) WBC 8.05 3.40 - 11.20 K/uL [facility] RBC 4.80 4.50 - 5.50 M/uL [facility] HGB 15.0 13.0 - 17.0 g/dL [facility] HCT 43.9 40.0 - 51.0 % [facility] PLT 197 130 - 400 K/uL [facility] MCV 91.5 79.0 - 98.0 fL [facility] MCH 31.3 27.0 - 34.8 pg [facility] MCHC 34.2 31.5 - 36.0 g/dL [facility] RDW 12.8 10.8 - 14.6 % [facility] MPV 10.4 9.4 - 12.4 fl [facility] NRBC 0.00 /100 WBCs [facility] ABSOLUTE NRBC 0.00 K/uL [facility] DIFF METHOD Auto [facility] NEUTS 59.2 45.30 - 77.70 % [facility] LYMPHS 31.8 12.30 - 39.70 % [facility] MONOS 7.7 4.10 - 12.80 % [facility] EOS 0.1 0 - 7.2 % [facility] BASOS 0.6 0 - 2.80 % [facility] Granulocytes, immature (%) 0.6 0.0 - 0.9 % [facility] ABSOLUTE NEUTS 4.76 1.40 - 7.70 K/uL [facility] ABSOLUTE LYMPHS 2.56 0.60 - 3.20 K/uL [facility] ABSOLUTE MONOS 0.62(H) 0.11 - 0.59 K/uL [facility] ABSOLUTE EOS 0.01 0.01 - 0.50 K/uL [facility] ABSOLUTE BASOS 0.05 0.00 - 0.08 K/uL [facility] Granulocytes, immature 0.05 0.00 - 0.05 K/uL [facility] Blood 02/20/2017 2:11 PM EST 02/20/2017 2:16 PM EST us Provider Not In System PhD LAB BLOOD ORDERABLES Final Result [facility] [address] [place] [address] documented in this encounter Visit Diagnoses Diagnosis Schizophrenia, unspecified type- Primary Schizoaffective disorder, depressive type Schizoaffective disorder, unspecified condition documented in this encounter Care Teams Lieutenant Fire Fighter Relationship Specialty Start Date End Date Kristina Gonzalez MD PCP - General Family Medicine 01/23/17 11/11/17 Kristina Gonzalez MD PCP - General Family Medicine 11/12/17 12/23/17 You Worthington MD [address] [address] PCP - General Family Medicine 12/24/17 documented as of this encounter Additional Source Comments The information contained in this document represents components of the legal health record. It is not the complete legal health record.[facility]
--- OUTSIDE RECORDS SUMMARY | 2024-12-30 13:06 | XMS_ITS | Encounter Summary ---
Author Organization [facility] Address [address] [facility] [address] [place] [address] Phone Care Team Providers Care Mounter Hand Name Role Phone Kristina Gonzalez MD Primary Care Provider You Worthington MD Primary Care Provide r Encounter Details Date Type Department Care Team (Late st Contact Info) Description 12/17/2017 Transcribe Orders [facility] Laboratory [address] [place] [address] Shubham Armendariz MD [address] [place] [address] [email or web address] Schizophrenia, unspecified type (Primary Dx) Social [...] HEMOGLOBIN A1C 5.3 4.3 - 5.8 % [facility] Blood 02/12/2018 10:4 6 AM EST 02/12/2018 10:48 AM EST us Shubham Armendariz MD LAB BLOOD ORDERABLES Final Result [facility] 30 [place] [address] * (ABNORMAL) Lipid panel (02/12/2018 10:46 AM EST) HDL 47 mg/dL [facility] Comment: Interpretation <40 mg/dL: Low HDL cholesterol (major risk factor for CHD) Greater than or equal to 60 mg/dL: High HDL cholesterol ( negative risk factor for CHD) HDL - cholesterol is affected by a number of factors, e.g. smoking, excerise, hormones, sex and age. CHOLESTEROL 237 0 - 240 mg/dL [facility] TRIGLYCERIDES 241(H) 30 - 160 mg/dL [facility] LDL 142(H) 50 - 129 mg/dL [facility] Comment: LDL levels in terms of risk for coronary heart disease: <100 mg/dL: Optimal 100-129 mg/dL: Near or above optimal 130-159 mg/dL: Borderline high 160-189 mg/dL: High >190 mg/dL: Very High CARDIAC RISK RATIO 5.0 3.4 - 5.0 C [facility] Blood 02/12/2018 10:4 6 AM EST 02/12/2018 10:48 AM EST us Shubham Armendariz MD LAB BLOOD ORDERABLES Final Result [facility] [address] [place] [address] * (ABNORMAL) Comprehensive metabolic panel (02/12/2018 10:46 AM EST) SODIUM 140 133 - 146 mmol/L [facility] POTASSIUM 4.2 3.3 - 5.1 mmol/L [facility] CHLORIDE 103 96 - 108 mmol/L [facility] CO2 25 21 - 35 mmol/L [facility] BUN 8 6 - 19 mg/dL [facility] CREATININE 0.70 0.5 - 1.5 mg/dL [facility] GLUCOSE 100(H) 70 - 99 mg/dL [facility] ALBUMIN 4.4 3.9 - 4.8 g/dL [facility] TOTAL PROTEIN 6.9 6.5 - 8.0 g/dL [facility] CALCIUM 9.1 8.4 - 10.3 mg/dL [facility] ALKALINE PHOSPHATASE 55 39 - 117 U/L [facility] TOTAL BILIRUBIN 0.8 0.0 - 1.2 mg/dL [facility] AST 27 0 - 37 U/L [facility] ALT 31 0 - 40 U/L [facility] GLOBULIN 2.5 1 - 4.8 g/dL [facility] EGFR 114 >59 mL/min/1.7 3m2 [facility] Comment:If patient is black, multiply result by 1.159. Estimated glomerular filtration rate calculated using the CKD-EPI equation. ANION GAP 16 10 - 20 mmol/L [facility] Blood 02/12/2018 10:4 6 AM EST 02/12/2018 10:48 AM EST Shubham Armendariz MD LAB BLOOD ORDERABLES Final Result Performing Organization Address City/[facility]/ZIP Co de Phone Number [address] [address] * (ABNORMAL) TSH (12/17/2017 9:41 AM EDT) TSH 5.99(H) 0.27 - 4.20 uIU/mL [facility] Blood 12/17/2017 9:41 AM EDT 12/17/2017 9:43 AM EDT Shubham Armendariz MD LAB BLOOD ORDERABLES Final Result Performing Organization Address City/[facility]/ZIP Co de Phone Number [address] [address] * Ammonia (12/17/2017 9:41 AM EDT) AMMONIA 29 28 - 80 umol/L [facility] Blood 12/17/2017 9:41 AM EDT 12/17/2017 9:43 AM EDT Shubham Armendariz MD LAB BLOOD ORDERABLES Final Result Performing Organization Address City/[facility]/ZIP Co de Phone Number [address] [address] * (ABNORMAL) Valproic acid (12/17/2017 9:41 AM EDT) VALPROIC ACID 44.1(L) 50.0 - 100.0 ug/mL [facility] Blood 12/17/2017 9:41 AM EDT 12/17/2017 9:43 AM EDT us Shubham Armendariz MD LAB BLOOD ORDERABLES Final Result [facility] [address] [place] [address] documented in this encounter Visit Diagnoses Diagnosis Schizophrenia, unspecified type- Primary documented in this encounter Care Teams Mounter Hand Relationship Specialty Start Date End Date Kristina Gonzalez MD PCP - General Family Medicine 11/12/17 12/23/17 You Worthington MD [address] [facility] [address] [place] [address] PCP - General Family Medicine 12/24/17 documented as of this encounter Additional Source Comments The information contained in this document represents components of the legal health record. It is not the complete legal health record.[facility]
--- OUTSIDE RECORDS SUMMARY | 2024-12-30 13:06 | XMS_ITS | Encounter Summary ---
Author Organization [facility] Address [address] [place] [address] Phone Care Team Providers Care Supervisor Securities Vault Name Role Phone You Worthington MD Primary Care Provide r Encounter Details Date Type Department Care Team (Late st Contact Info) Description 07/19/2020 Transcribe Orders Virtual Department 30 [place] [address] Shubham Armendariz MD 50 [place] [address] [email or web address] Therapeutic drug monitoring (Primary Dx) Social [...] BPM [facility] Atrial Rate 103 BPM [facility] NM Interval 126 ms [facility] QRS Duration 88 ms [facility] QT Interval 328 ms [facility] QTC Interval 429 ms [facility] P [place] 48 degrees [facility] R Wave [place] 38 degrees [facility] T Wave [place] 29 degrees [facility] 07/21/2020 11:3 9 AM [...] monitoring documented in this encounter Care Teams Supervisor Securities Vault Relationship Specialty Start Date End Date You Worthington MD [address] [facility] [address] [place] [address] PCP - General Family Medicine 12/24/17 documented as of this encounter Additional Source Comments The information contained in this document represents components of the legal health record. It is not the complete legal health record.[facility]
--- OUTSIDE RECORDS SUMMARY | 2024-12-30 13:06 | XMS_ITS | Encounter Summary ---
Author Organization [facility] Address [address] [facility] [address] [place] [address] Phone Care Team Providers Care Natural Resources Professor Name Role Phone You Worthington MD Primary Care Provide r Encounter Details Date Type Department Care Team ([facility] st Contact Info) Description 12/04/2022 Transcribe Orders [facility] Specimen Processing [address] [place] [address] Archie Reddy MD [address] [place] [address] [phone] Social History Tobacco Use Types Packs/Day Years [...] on filedocumented in this encounter Care Teams Natural Resources Professor Relationship Specialty Start Date End Date You Worthington MD [address] [facility] [address] [place] [address] PCP - General Family Medicine 12/24/17 documented as of this encounter Additional Source Comments The information contained in this document represents components of the legal health record. It is not the complete legal health record.[facility]
--- OUTSIDE RECORDS SUMMARY | 2024-12-30 13:06 | XMS_ITS | Encounter Summary ---
Author Organization [facility] Address [address] [facility] [address] [place] [address] Phone Care Team Providers Care Enterprise Project Manager Name Role Phone Kristina Gonzalez MD Primary Care Provider Kristina Gonzalez MD Primary Care Provider You Worthington MD Primary Care Provide r Encounter Details Date Type Department Care Team (Latest Contact Info) Description 01/23/2017 Transcribe Orders [facility] Laboratory 30 [place] [address] Geo Russo, KASSANDRA [address] [place], [place] [phone] Schizoaffective disorder, unspecified type (Primary Dx) Social [...] EST) WBC 7.89 3.40 - 11.20 K/uL [facility] RBC 5.06 4.50 - 5.50 M/uL [facility] HGB 15.9 13.0 - 17.0 g/dL [facility] HCT 46.8 40.0 - 51.0 % [facility] PLT 193 130 - 400 K/uL [facility] MCV 92.5 79.0 - 98.0 fL [facility] MCH 31.4 27.0 - 34.8 pg [facility] MCHC 34.0 31.5 - 36.0 g/dL [facility] RDW 13.0 10.8 - 14.6 % [facility] MPV 10.9 9.4 - 12.4 fl [facility] NRBC 0.00 /100 WBCs [facility] ABSOLUTE NRBC 0.00 K/uL [facility] DIFF METHOD Auto [facility] NEUTS 59.8 45.30 - 77.70 % [facility] LYMPHS 30.7 12.30 - 39.70 % [facility] MONOS 8.2 4.10 - 12.80 % [facility] EOS 0.3 0 - 7.2 % [facility] BASOS 0.5 0 - 2.80 % [facility] Granulocytes, immature (%) 0.5 0.0 - 0.9 % [facility] ABSOLUTE NEUTS 4.72 1.40 - 7.70 K/uL [facility] ABSOLUTE LYMPHS 2.42 0.60 - 3.20 K/uL [facility] ABSOLUTE MONOS 0.65(H) 0.11 - 0.59 K/uL [facility] ABSOLUTE EOS 0.02 0.01 - 0.50 K/uL [facility] ABSOLUTE BASOS 0.04 0.00 - 0.08 K/uL [facility] Granulocytes, immature 0.04 0.00 - 0.05 K/uL [facility] Blood 01/23/2017 1:58 PM EST 01/23/2017 2:06 PM EST us Geo Russo NP LAB BLOOD ORDERABLES Edited Res ult - Final [facility] [address] [place] [address] documented in this encounter Visit Diagnoses Diagnosis Schizoaffective disorder, unspecified type- Primary documented in this encounter Care Teams Enterprise Project Manager Relationship Specialty Start Date End Date Kristina Gonzalez MD PCP - General Family Medicine 01/23/17 11/11/17 Kristina Gonzalez MD PCP - General Family Medicine 11/12/17 12/23/17 You Worthington MD [address] [address] PCP - General Family Medicine 12/24/17 documented as of this encounter Additional Source Comments The information contained in this document represents components of the legal health record. It is not the complete legal health record.[facility]
--- OUTSIDE RECORDS SUMMARY | 2024-12-30 13:06 | XMS_ITS | Encounter Summary ---
Author Organization [facility] Address [address] [facility] 7t [place] [address] Care Team Providers Care Truck Driver Salesperson Name Role Phone Unavailable Primary Care Provider [...] 01/26/2025 3:50 PM EST Office Visit Nick [facility] [address] [place] [address] Sofia Kuhn LLD 9 [place] [address] documented as of this encounter Visit Diagnoses Not on filedocumented in this encounter
--- OUTSIDE RECORDS SUMMARY | 2024-12-30 13:06 | XMS_ITS | Encounter Summary ---
Author Organization [facility] Address [address] [facility] [address] [place] [address] Phone Care Team Providers Care Agricultural Engineering Technician Name Role Phone Kristina Gonzalez MD Primary Care Provider Kristina Gonzalez MD Primary Care Provider You Worthington MD Primary Care Provide r Encounter Details Date Type Department Care Team (Latest Contact Info) Description 04/23/2017 Transcribe Orders [facility] Laboratory [address] [place] [address] Karina Bird, KASSANDRA [address] [place], [place] [phone] Schizoaffective disorder, depressive type (Primary Dx) Social [...] condition documented in this encounter Care Teams Agricultural Engineering Technician Relationship Specialty Start Date End Date Kristina Gonzalez MD PCP - General Family Medicine 01/23/17 11/11/17 Kristina Gonzalez MD PCP - General Family Medicine 11/12/17 12/23/17 [facility] [address] [address] PCP - General Family Medicine 12/24/17 documented as of this encounter Additional Source Comments The information contained in this document represents components of the legal health record. It is not the complete legal health record.[facility]
--- OUTSIDE RECORDS SUMMARY | 2024-12-30 13:06 | XMS_ITS | Encounter Summary ---
Author Organization [facility] Address [address] [facility] [address] [place] [address] Phone Care Team Providers Care Gettering Operator Name Role Phone You Worthington MD Primary Care Provide r Encounter Details Date Type Department Care Team (Latest Contact Info) Description 02/12/2020 Ancillary Orders Virtual Department 30 [place] [address] Roderick Vitale, DO [address] [place] [address] [email or web address] Social History Tobacco Use Types [...] unspecified documented in this encounter Care Teams Gettering Operator Relationship Specialty Start Date End Date You Worthington MD [address] [address] PCP - General Family Medicine 12/24/17 documented as of this encounter Additional Source Comments The information contained in this document represents components of the legal health record. It is not the complete legal health record.[facility]
--- OUTSIDE RECORDS SUMMARY | 2024-12-30 13:06 | XMS_ITS | Encounter Summary ---
Author Organization [facility] Address [address] [facility] [address] [place] [address] Phone Care Team Providers Care Metal Turner Name Role Phone You Worthington MD Primary Care Provide r Encounter Details Date Type Department Care Team (Late st Contact Info) Description 06/14/2023 Procedure Pass [facility] Endoscopy Admitting Dept Virtual Department 30 [place] [address] Social History Tobacco Use Types Packs/Day Years [...] on filedocumented in this encounter Care Teams Metal Turner Relationship Specialty Start Date End Date You Worthington MD [address] [address] PCP - General Family Medicine 12/24/17 documented as of this encounter Additional Source Comments The information contained in this document represents components of the legal health record. It is not the complete legal health record.[facility]
--- OUTSIDE RECORDS SUMMARY | 2024-12-30 13:06 | XMS_ITS | Encounter Summary ---
Author Organization [facility] Address [address] [facility] [address] [place] [address] Phone Care Team Providers Care Tying Machine Operator Name Role Phone You Worthington MD Primary Care Provide r Encounter Details Date Type Department Care Team (Latest Contact Info) Description 08/19/2019 Transcribe Orders [facility] Laboratory [address] [place] [address] Shubham Armendariz MD [address] [place] [address] [email or web address] Schizoaffective disorder, unspecified type (Primary Dx); Type 2 diabetes mellitus without complication, unspecified whether intermediate accountant insulin use Social History Tobacco Use Types [...] T-hs Gen5 13 0 - 14 ng/L [facility] Blood 08/19/2019 12:1 9 PM EDT 08/19/2019 12:34 PM EDT us Shubham Armendariz MD LAB BLOOD ORDERABLES Final Result [facility] [address] [place] [address] * Ammonia (08/19/2019 12:19 PM EDT) AMMONIA 41 28 - 80 umol/L [facility] Blood 08/19/2019 12:1 9 PM EDT 08/19/2019 12:32 PM EDT Shubham Armendariz MD LAB BLOOD ORDERABLES Final Result [address] [address] * (ABNORMAL) Valproic acid (08/19/2019 12:19 PM EDT) VALPROIC ACID 33.0(L) 50.0 - 100.0 ug/mL [facility] Blood 08/19/2019 12:1 9 PM EDT 08/19/2019 12:32 PM EDT us Shubham Armendariz MD LAB BLOOD ORDERABLES Final Result Performing Organization Address City/[facility]/ZIP Co de Phone Number [address] [address] * Hemoglobin A1c (08/19/2019 12:19 PM EDT) HEMOGLOBIN A1C 5.7 4.3 - 5.8 % [facility] Blood 08/19/2019 12:1 9 PM EDT 08/19/2019 12:32 PM EDT Shubham Armendariz MD LAB BLOOD ORDERABLES Final Result Performing Organization Address City/[facility]/ZIP Co de Phone Number [address] [address] * (ABNORMAL) Lipid panel (08/19/2019 12:19 PM EDT) HDL 42 mg/dL [facility] Comment: Interpretation <40 mg/dL: Low HDL cholesterol (major risk factor for CHD) Greater than or equal to 60 mg/dL: High HDL cholesterol ( negative risk factor for CHD) HDL - cholesterol is affected by a number of factors, e.g. smoking, excerise, hormones, sex and age. CHOLESTEROL 247(H) 0 - 240 mg/dL [facility] TRIGLYCERIDES 324(H) 30 - 160 mg/dL [facility] LDL 140(H) 50 - 129 mg/dL [facility] Comment: LDL levels in terms of risk for coronary heart disease: <100 mg/dL: Optimal 100-129 mg/dL: Near or above optimal 130-159 mg/dL: Borderline high 160-189 mg/dL: High >190 mg/dL: Very High CARDIAC RISK RATIO 5.9(H) 3.4 - 5.0 C [facility] Blood 08/19/2019 12:1 9 PM EDT 08/19/2019 12:32 PM EDT Shubham Armendariz MD LAB BLOOD ORDERABLES Final Result Performing Organization Address City/[facility]/ZIP Co de Phone Number [address] [address] * C-Reactive Protein (08/19/2019 12:19 PM EDT) Pathologist [facility] C REACTIVE PROTEIN 1.2 0.0 - 4.0 mg/L [facility] Blood 08/19/2019 12:1 9 PM EDT 08/19/2019 12:32 PM EDT Shubham Armendraiz MD LAB BLOOD ORDERABLES Final Result [address] [address] * (ABNORMAL) Comprehensive metabolic panel (08/19/2019 12:19 PM EDT) SODIUM 139 133 - 146 mmol/L [facility] POTASSIUM 4.3 3.3 - 5.1 mmol/L [facility] CHLORIDE 103 96 - 108 mmol/L [facility] CO2 22 21 - 35 mmol/L [facility] BUN 11 6 - 19 mg/dL [facility] CREATININE 0.70 0.5 - 1.5 mg/dL [facility] GLUCOSE 108(H) 70 - 99 mg/dL [facility] ALBUMIN 4.7 3.9 - 4.8 g/dL [facility] TOTAL PROTEIN 7.3 6.5 - 8.0 g/dL [facility] CALCIUM 9.7 8.4 - 10.3 mg/dL [facility] ALKALINE PHOSPHATASE 59 39 - 117 U/L [facility] TOTAL BILIRUBIN 0.5 0.0 - 1.2 mg/dL [facility] AST 22 0 - 37 U/L [facility] ALT 27 0 - 40 U/L [facility] GLOBULIN 2.6 1 - 4.8 g/dL [facility] EGFR 112 >59 mL/min/1.7 3m2 [facility] Comment:If patient is black, multiply result by 1.159. Estimated glomerular filtration rate calculated using the CKD-EPI equation. ANION GAP 18 10 - 20 mmol/L [facility] Blood 08/19/2019 12:1 9 PM EDT 08/19/2019 12:32 PM EDT us Shubham Armendariz MD LAB BLOOD ORDERABLES Final Result [facility] [address] [place] [address] documented in this encounter Visit Diagnoses Diagnosis Schizoaffective disorder, unspecified type- Primary Type 2 diabetes mellitus without complication, unspecified whether penitentiary insulin use documented in this encounter Care Teams Tying Machine Operator Relationship Specialty Start Date End Date You Worthington MD [address] [address] PCP - General Family Medicine 12/24/17 documented as of this encounter Additional Source Comments The information contained in this document represents components of the legal health record. It is not the complete legal health record.[facility]
--- OUTSIDE RECORDS SUMMARY | 2024-12-30 13:06 | XMS_ITS | Encounter Summary ---
Author Organization [facility] Address [address] [facility] 7t [place] [address] Care Team Providers Care Epic Beacon Analyst Name Role Phone Unavailable Primary Care [...] 01/26/2025 3:50 PM EST Office Visit Nick [facility] [address] [place] [address] Sofia Kuhn LLD 9 [place] [address] documented as of this encounter Visit Diagnoses Not on filedocumented in this encounter
--- OUTSIDE RECORDS SUMMARY | 2024-12-30 13:06 | XMS_ITS | Encounter Summary ---
Author Organization [facility] Address [address] [facility] [address] [place] [address] Phone Care Team Providers Care Inflated Pad Buffer Name Role Phone You Worthington MD Primary Care Provide r Encounter Details Date Type Department Care Team (Late st Contact Info) Description 12/24/2017 Transcribe Orders Non-Invasive Cardiology [address] [place] [address] Shubham Armendariz MD [address] [place] [address] [email or web address] Schizophrenia, unspecified type (Primary Dx) Social [...] BPM [facility] Atrial Rate 80 BPM [facility] NV Interval 140 ms [facility] QRS Duration 86 ms [facility] QT Interval 348 ms [facility] QTC Interval 401 ms [facility] P [place] 45 degrees [facility] R Wave [place] 9 degrees [facility] T Wave [place] 34 degrees [facility] 12/24/2017 1:01 PM EDT 12/25/2017 5:06 PM EDT Narrative [facility] - 12/25/2017 5:06 PM EDT Normal sinus rhythm Normal ECG When compared with ECG of 17-DEC-2012 12:39, No significant change was found Confirmed by BULMARO BROWN MD ([id number]) on 12/25/2017 5:06:55 PM us Shubham Armendariz MD ECG ORDERABLES Final Resul t [facility] documented in this encounter Visit Diagnoses Diagnosis Schizophrenia, unspecified type Schizophrenia, unspecified type- Primary documented in this encounter Care Teams Inflated Pad Buffer Relationship Specialty Start Date End Date You Worthington MD [address] [facility] [address] [place] [address] PCP - General Family Medicine 12/24/17 documented as of this encounter Additional Source Comments The information contained in this document represents components of the legal health record. It is not the complete legal health record.[facility]
--- OUTSIDE RECORDS SUMMARY | 2024-12-30 13:07 | XMS_ITS | Encounter Summary ---
Author Organization [facility] Address [address] [facility] [address] [place] [address] Phone Care Team Providers Care Office Bookkeeper Name Role Phone You Worthington MD Primary Care Provide r Encounter Details Date Type Department Care Team (Late st Contact Info) Description 07/09/2024 Procedure Pass [facility] Endoscopy Admitting Dept Virtual Department [address] [place] [address] Social History Tobacco Use Types Packs/Day Years [...] on filedocumented in this encounter Care Teams Office Bookkeeper Relationship Specialty Start Date End Date You Worthington MD [address] [address] PCP - General Family Medicine 12/24/17 documented as of this encounter Additional Source Comments The information contained in this document represents components of the legal health record. It is not the complete legal health record.[facility]
--- OUTSIDE RECORDS SUMMARY | 2024-12-30 13:07 | XMS_ITS | Encounter Summary ---
Author Organization [facility] Address [address] [facility] 7t [place] [address] Care Team Providers Care Ore Smelter Name Role Phone Unavailable Primary Care Provider [...] 01/26/2025 3:50 PM EST Office Visit Nick [facility] [address] [place] [address] Sofia Kuhn LLD [address] [place] [address] documented as of this encounter Visit Diagnoses Not on filedocumented in this encounter
--- OUTSIDE RECORDS SUMMARY | 2024-12-30 13:07 | XMS_ITS | Encounter Summary ---
Author Organization [facility] Address [address] [facility] 7t [place] [address] Care Team Providers Care Machine Maintenance Repairer Name Role Phone Unavailable Primary Care Provider [...] 01/26/2025 3:50 PM EST Office Visit Nick [facility] [address] [place] [address] Sofia Kuhn LLD [address] [place] [address] documented as of this encounter Visit Diagnoses Not on filedocumented in this encounter
== END 2024-12-30 10:34 | disposition home or self-care (01) ==
LOC: HO.US 10:33
PROVIDERS: PCP Family Medicine; Visit Provider Surgery Vascular Surgery
DX: I83.12 Varicose veins of left lower extremity with inflammation (principal)
CPT/HCPCS: 93970

== ENCOUNTER → 2024-12-30 10:35 | Outpatient (BNV) | payer MEDICARE, MEDICAID, SELFPAY | PROVIDERS: PCP Family Medicine; Visit Provider Radiology Diagnostic Radiology | DX: I82.411 Acute embolism and thrombosis of right femoral vein (principal) | CPT/HCPCS: 93970 ==

== ENCOUNTER 2025-01-05 11:02 | Outpatient (AMB) | payer MEDICARE, MEDICAID, SELFPAY ==
--- NOTE | 2025-01-05 11:03 | MHC.OFFVIS ---
Vital Signs 01/05/25 11:05 Height 6 ft 4 in Weight 270 lb BMI 32.9 Intake Visit Reasons: follow up US 04/01/2024 w/ DVT Intake Note: Follow up US 12/30/24 and showed small DVT. Pt states Left LE worse than Right LE w/ some swelling and discoloration Accompanied by: Mother Allergies No Known Allergies Allergy (Verified 01/05/25 11:11) HPI HPI follow up 04/01/2024 w/ DVT: Details: The patient is a 54-year-old male presenting for follow-up evaluation after a venous insufficiency study. The patient has a history of chronic venous insufficiency, characterized by swelling and discoloration in the right leg for several years. The condition has led to tightness and impaired venous function on the right side, with less severity on the left. Recently, two small, chronic, non-occlusive blood clots were identified in the right femoral vein. The patient was unaware of any previous history of blood clots. Upon discovery of the DVT on study dated 04/01/2024 Eliquis was immediately started. He was placed on started Dosepak. Appears to be doing relatively well from that. The patient has a significant history of tobacco use, having smoked a pack and a half per day for 20-25 years, but quit over seven years ago. PFSH Surgical History H/O colonoscopy Social History Patient Tobacco Use Status: Never used Tobacco Review of Systems Const All systems reviewed & are unremarkable except as noted in HPI and below Reports no additional complaints ENT Reports Normal hearing present Card Denies chest pain, Denies chest pain at rest, Denies chest pain with activity and Denies pedal edema Resp Denies cough GI Denies abdominal pain Musc Denies abnormal gait, Denies muscle cramps and Denies radiating pain into limb Skin/Breast Denies skin ulcer and Denies wounds Neuro Reports Normal hearing present and Denies abnormal gait Psych Reports no additional complaints Physical Exam Vital Signs: BMI result Body Mass Index 32.9 Const General: cooperative, healthy appearing and comfortable Orientation/consciousness: oriented to person, oriented to place and oriented to time HEENT Head: Yes normal to inspection Neck Neck: Yes normal visual inspection Carotids: no bruits Chest Chest palpation & inspection: normal inspection of the chest Resp Effort & Inspection: normal respiratory effort and able to speak in complete sentences Auscultation: clear to auscultation bilaterally, no crackles, no rales, no rhonchi and no wheezes Cardio Rate: regular rate Rhythm: regular rhythm Heart sounds: S1 normal heart sound present and S2 normal heart sound present Bruits: no carotid bruits Peripheral pulses: Peripheral pulses 2+ throughout GI Inspection: Yes normal to inspection Skin Wounds: no wounds Hair: normal Neuro General: oriented to person, oriented to place and oriented to time Cranial nerves: Yes CN's II-XII intact bilaterally and Yes Normal hearing present Cognition (Neuro): normal cognition Motor exam (neuro): 5/5 motor strength present throughout Extrem Other: venous exam: +2 edema with skin changes General: No clubbing, No cyanosis and Yes edema Psych Appearance: grossly normal Mental Status: mental status grossly normal Speech and movement: Normal speech and movement present Results Reviewed Results Reviewed: Brief summary of venous insufficiency testing is as follows: right great saphenous vein: Positive right small saphenous vein: negative right accessory vein: none present left great saphenous vein: Positive left small saphenous vein: negative left accessory vein: none present Please note there is no evidence of any venous aneurysms or significant tortuosity Assessment & Plan Assessment & Plan (1) Dvt femoral (deep venous thrombosis): Code(s): I82.419 - Acute embolism and thrombosis of unspecified femoral vein Category: Medical Qualifiers: Chronicity: chronic Laterality: right Qualified Code(s): I82.511 - Chronic embolism and thrombosis of right femoral vein Plan: In short patient has right lower extremity DVT. It is unclear what the chronicity of this was but he has never been treated for this. He was started on Eliquis. He will require a total of 3 months of anticoagulation. Once this is complete will address his venous insufficiency. We will get a follow-up ultrasound in a proximally 10 days to ensure that this is true. (2) Varicose veins of left lower extremity with inflammation: Code(s): I83.12 - Varicose veins of left lower extremity with inflammation Category: Medical Plan: We will follow up in a proximally 3 months for leg check. At that time may consider right lower extremity venous ablation of great saphenous vein. Orders: Orders US venous duplex LE RT 7 Days I82.511 - Chronic embolism and thrombosis of right femoral vein Medications: New apixaban (Eliquis) 5 mg PO BID 60 tabs 1RF Coding Level of Care Code Est Pt Level 4 (54616) Diagnoses Chronic deep vein thrombosis (DVT) of femoral vein of right lower extremity I82.511 Chronicity: chronic Laterality: right Varicose veins of left lower extremity with inflammation I83.12
[2025-01-05 11:05] VITALS: BMI 32.9
== END 2025-01-05 11:37 | disposition home or self-care (01) ==
LOC: HO.HVS 11:02
PROVIDERS: PCP Family Medicine; Visit Provider Surgery Vascular Surgery
DX: I82.511 Chronic embolism and thrombosis of right femoral vein (principal); I83.12 Varicose veins of left lower extremity with inflammation
CPT/HCPCS: 99214

== ENCOUNTER → 2025-01-05 11:02 | Outpatient (BNVA) | payer MEDICARE, MEDICAID, SELFPAY | PROVIDERS: PCP Family Medicine; Visit Provider Surgery Vascular Surgery | DX: I82.511 Chronic embolism and thrombosis of right femoral vein (principal); I83.12 Varicose veins of left lower extremity with inflammation | CPT/HCPCS: 99212 ==

== ENCOUNTER 2025-01-14 09:57 | Outpatient (REF) | payer MEDICARE, MEDICAID, SELFPAY ==
--- NOTE | ~2025-01-14 | US_ITS ---
EXAMINATION: US TRIPLEX LOWER EXTREMITY, RIGHT CLINICAL INFORMATION: Nonocclusive thrombus right femoral vein. Follow-up. COMPARISON: December 30, 2024. TECHNIQUE: Color-flow triplex imaging with spectral analysis and compression Doppler were performed on the right lower extremity. FINDINGS: Respiratory variation, normal compression and augmented flow are demonstrated in the interrogated right common femoral vein, profunda femoral vein, popliteal vein and midcalf peroneal and posterior tibial venous segments. There is intraluminal isoechoic abnormality and partial compressibility in the right superficial femoral vein.. There is no Hinkle's cyst. 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 No new findings.. Electronically signed by: Brian Gupta MD 01/14/2025 11:18 AM [facility]
--- OUTSIDE RECORDS SUMMARY | 2025-01-14 11:53 | XMS_ITS | Encounter Summary ---
Author Organization [facility] Address [address] [facility] [address] [place] [address] Phone Care Team Providers Care Raimann Machine Operator Name Role Phone You Worthington MD Primary Care Provide r Encounter Details Date Type Department Care Team ([facility] st Contact Info) Description 12/04/2022 Transcribe Orders [facility] Specimen Processing [address] [place] [address] Archie Reddy MD [address] [place] [phone] Social History Tobacco Use Types Packs/Day Years [...] on filedocumented in this encounter Care Teams Raimann Machine Operator Relationship Specialty Start Date End Date You Worthington MD [address] [facility] [address] [place] [address] PCP - General Family Medicine 12/24/17 documented as of this encounter Additional Source Comments The information contained in this document represents components of the legal health record. It is not the complete legal health record.[facility]
--- OUTSIDE RECORDS SUMMARY | 2025-01-14 11:53 | XMS_ITS | Encounter Summary ---
Author Organization [facility] Address [address] [facility] [address] [place] [address] Phone Care Team Providers Care Accountant Machine Processing Name Role Phone You Worthington MD Primary Care Provide r Encounter Details Date Type Department Care Team ([facility] st Contact Info) Description 02/17/2020 Procedure Pass [facility], [address] [address] Social History Tobacco Use Types Packs/Day Years [...] on filedocumented in this encounter Care Teams Accountant Machine Processing Relationship Specialty Start Date End Date You Worthington MD [address] [facility] [address] [place] [address] PCP - General Family Medicine 12/24/17 documented as of this encounter Additional Source Comments The information contained in this document represents components of the legal health record. It is not the complete legal health record.[facility]
--- OUTSIDE RECORDS SUMMARY | 2025-01-14 11:53 | XMS_ITS | Encounter Summary ---
Author Organization [facility] Address [address] [facility] [address] [place] [address] Phone Care Team Providers Care House Worker Name Role Phone Kristina Gonzalez MD Primary Care Provider Kristina Gonzalez MD Primary Care Provider You Worthington MD Primary Care Provide r Encounter Details Date Type Department Care Team (Late st Contact Info) Description 03/21/2017 Transcribe Orders [facility] Phleb Main [address] [place] [address] System, Provider Not In, [facility] [address] [address] Depression, unspecified depression type (Primary Dx) Social [...] EST) WBC 8.13 3.40 - 11.20 K/uL [facility] RBC 4.51 4.50 - 5.50 M/uL [facility] HGB 14.1 13.0 - 17.0 g/dL [facility] HCT 42.7 40.0 - 51.0 % [facility] PLT 183 130 - 400 K/uL [facility] MCV 94.7 79.0 - 98.0 fL [facility] MCH 31.3 27.0 - 34.8 pg [facility] MCHC 33.0 31.5 - 36.0 g/dL [facility] RDW 13.0 10.8 - 14.6 % [facility] MPV 10.6 9.4 - 12.4 fl [facility] NRBC 0.00 /100 WBCs [facility] ABSOLUTE NRBC 0.00 K/uL [facility] DIFF METHOD Auto [facility] NEUTS 61.7 45.30 - 77.70 % [facility] LYMPHS 29.0 12.30 - 39.70 % [facility] MONOS 8.2 4.10 - 12.80 % [facility] EOS 0.0 0 - 7.2 % [facility] BASOS 0.6 0 - 2.80 % [facility] Granulocytes, immature (%) 0.5 0.0 - 0.9 % [facility] ABSOLUTE NEUTS 5.01 1.40 - 7.70 K/uL [facility] ABSOLUTE LYMPHS 2.36 0.60 - 3.20 K/uL [facility] ABSOLUTE MONOS 0.67(H) 0.11 - 0.59 K/uL [facility] ABSOLUTE EOS 0.00(L) 0.01 - 0.50 K/uL [facility] ABSOLUTE BASOS 0.05 0.00 - 0.08 K/uL [facility] Granulocytes, immature 0.04 0.00 - 0.05 K/uL [facility] Blood 03/21/2017 2:10 PM EST 03/21/2017 2:13 PM EST us Provider Not In System PhD LAB BLOOD BKR ORDERAB LES Final Result [facility] [address] [place], [place] [id number] documented in this encounter Visit Diagnoses Diagnosis Depression, unspecified depression type- Primary documented in this encounter Care Teams House Worker Relationship Specialty Start Date End Date Kristina Gonzalez MD PCP - General Family Medicine 01/23/17 11/11/17 Kristina Gonzalez MD [email or web address] PCP - General Family Medicine 11/12/17 12/23/17 You Worthington MD [address] [address] PCP - General Family Medicine 12/24/17 documented as of this encounter Additional Source Comments The information contained in this document represents components of the legal health record. It is not the complete legal health record.[facility]
--- OUTSIDE RECORDS SUMMARY | 2025-01-14 11:53 | XMS_ITS | Encounter Summary ---
Author Organization [facility] Address [address] [facility] [address] [place] [address] Phone Care Team Providers Care Simulation Engineer Name Role Phone Kristina Gonzalez MD Primary Care Provider Kristina Gonzalez MD Primary Care Provider You Worthington MD Primary Care Provide r Encounter Details Date Type Department Care Team (Late st Contact Info) Description 02/20/2017 Transcribe Orders [facility] Phleb Main [address] [place] [address] System, Provider Not In, [facility] [address] [address] Schizophrenia, unspecified type (Primary Dx); Schizoaffective disorder, [...] EST) WBC 8.05 3.40 - 11.20 K/uL [facility] RBC 4.80 4.50 - 5.50 M/uL [facility] HGB 15.0 13.0 - 17.0 g/dL [facility] HCT 43.9 40.0 - 51.0 % [facility] PLT 197 130 - 400 K/uL [facility] MCV 91.5 79.0 - 98.0 fL [facility] MCH 31.3 27.0 - 34.8 pg [facility] MCHC 34.2 31.5 - 36.0 g/dL [facility] RDW 12.8 10.8 - 14.6 % [facility] MPV 10.4 9.4 - 12.4 fl [facility] NRBC 0.00 /100 WBCs [facility] ABSOLUTE NRBC 0.00 K/uL [facility] DIFF METHOD Auto [facility] NEUTS 59.2 45.30 - 77.70 % [facility] LYMPHS 31.8 12.30 - 39.70 % [facility] MONOS 7.7 4.10 - 12.80 % [facility] EOS 0.1 0 - 7.2 % [facility] BASOS 0.6 0 - 2.80 % [facility] Granulocytes, immature (%) 0.6 0.0 - 0.9 % [facility] ABSOLUTE NEUTS 4.76 1.40 - 7.70 K/uL [facility] ABSOLUTE LYMPHS 2.56 0.60 - 3.20 K/uL [facility] ABSOLUTE MONOS 0.62(H) 0.11 - 0.59 K/uL [facility] ABSOLUTE EOS 0.01 0.01 - 0.50 K/uL [facility] ABSOLUTE BASOS 0.05 0.00 - 0.08 K/uL [facility] Granulocytes, immature 0.05 0.00 - 0.05 K/uL [facility] Blood 02/20/2017 2:11 PM EST 02/20/2017 2:16 PM EST us Provider Not In System PhD LAB BLOOD BKR ORDERAB LES Final Result [facility] [address] [place] [address] documented in this encounter Visit Diagnoses Diagnosis Schizophrenia, unspecified type- Primary Schizoaffective disorder, depressive type Schizoaffective disorder, unspecified condition documented in this encounter Care Teams Simulation Engineer Relationship Specialty Start Date End Date Kristina Gonzalez MD PCP - General Family Medicine 01/23/17 11/11/17 Kristina Gonzalez MD [email or web address] PCP - General Family Medicine 11/12/17 12/23/17 You Worthington MD [address] [address] PCP - General Family Medicine 12/24/17 documented as of this encounter Additional Source Comments The information contained in this document represents components of the legal health record. It is not the complete legal health record.[facility]
--- OUTSIDE RECORDS SUMMARY | 2025-01-14 11:53 | XMS_ITS | Encounter Summary ---
Author Organization [facility] Address [address] [facility] [address] [place] [phone] Phone Care Team Providers Care Vault Worker Name Role Phone Kristina Gonzalez MD Primary Care Provider Kristina Gonzalez MD Primary Care Provider You Worthington MD Primary Care Provide r Encounter Details Date Type Department Care Team (Latest Contact Info) Description 04/23/2017 Transcribe Orders [facility] Phleb Main [address] [place] [address] Karina Bird NP [address] [place], [place] [phone] Schizoaffective disorder, depressive type (Primary Dx) Social [...] condition documented in this encounter Care Teams Vault Worker Relationship Specialty Start Date End Date Kristina Gonzalez MD PCP - General Family Medicine 01/23/17 11/11/17 Kristina Gonzalez MD PCP - General Family Medicine 11/12/17 12/23/17 You Worthington MD [address] [address] PCP - General Family Medicine 12/24/17 documented as of this encounter Additional Source Comments The information contained in this document represents components of the legal health record. It is not the complete legal health record.[facility]
--- OUTSIDE RECORDS SUMMARY | 2025-01-14 11:53 | XMS_ITS | Encounter Summary ---
Author Organization [facility] Address [address] [facility] [address] [place] [address] Phone Care Team Providers Care Paper Plate Machine Tender Name Role Phone You Worthington MD Primary Care Provide r Reason for Referral * MRI/CAT Scan - Closed Specialty Diagnoses / Procedures Referred By Duglas ovalle Referred To Contact Radiology Diagnoses Lumbar radiculopathy Procedures MRI Lumbar Spine Roderick Vitale DO Phone: tel: fax: mailto:[email or web address] Referral ID Status Reason Start Date Expiration Date Visits Re quested Visits Authorized [id number] Closed 02/17/2020 02/16/2021 1 1 Encounter Details Date Type Department Care Team (Latest Contact Info) Description 02/17/2020 Ancillary Orders Virtual Department [address] [place] [address] Roderick Vitale DO [address] [place] [address] [email or web address] Lumbar radiculopathy Social History Tobacco Use Types [...] unspecified documented in this encounter Care Teams Paper Plate Machine Tender Relationship Specialty Start Date End Date You Worthington MD [address] [address] PCP - General Family Medicine 12/24/17 documented as of this encounter Additional Source Comments The information contained in this document represents components of the legal health record. It is not the complete legal health record.[facility]
--- OUTSIDE RECORDS SUMMARY | 2025-01-14 11:53 | XMS_ITS | Encounter Summary ---
Author Organization [facility] Address [address] [facility] [address] [place] [address] Phone Care Team Providers Care Software Implementation Specialist Name Role Phone You Worthington MD Primary Care Provide r Encounter Details Date Type Department Care Team (Latest Contact Info) Description 02/12/2020 Ancillary Orders Virtual Department [address] [place] [address] Roderick Vitale, DO [address] [place] [address] [email or web address] Lumbar radiculopathy Social History Tobacco Use Types [...] unspecified documented in this encounter Care Teams Software Implementation Specialist Relationship Specialty Start Date End Date You Worthington MD [address] [address] PCP - General Family Medicine 12/24/17 documented as of this encounter Additional Source Comments The information contained in this document represents components of the legal health record. It is not the complete legal health record.[facility]
--- OUTSIDE RECORDS SUMMARY | 2025-01-14 11:54 | XMS_ITS | Clinical Summary ---
Author Organization [facility] Address [address] [facility] [address] [place] [address] Phone Care Team Providers Care Cold Press Loader Name Role Phone You Worthington MD Primary [...] - 11/05/2024 11:59 PM EDT Hospital Encounter [facility] Main [address] [place] [address] Haroon Reddy MD Discharge Disposition: Home or Self Care 11/02/2024 Orders Only [facility] Specimen Processing [address] [place] [address] Haroon Reddy MD Schizoaffective disorder, depressive type (Primary Dx); Drug therapy 10/29/2024 2:03 PM EDT - 10/29/2024 11:59 PM EDT Hospital Encounter [facility] Main [address] [place] [address] Haroon Reddy MD Discharge Disposition: Home or Self Care 10/29/2024 Transcribe Orders [facility] Phleb Main [address] [place] [address] Haroon Reddy MD Schizoaffective disorder, depressive type (Primary Dx); Pharmacologic therapy 10/28/2024 3:48 PM EDT - 10/28/2024 11:59 PM EDT Hospital Encounter [facility] Main [address] [place] [address] Haroon Reddy MD Discharge Disposition: Home or [...] 1990 HIV ONE-TIME SCREENING (18-65 YEARS) 1990 PNEUMOCOCCAL VACCINES (50+ years) (2 of 2 - PCV) 02/03/2014 02/03/2013 COLOGUARD 2017 FIT TEST 2017 FOBT 2017 SIGMOIDOSCOPY 2017 VIRTUAL COLONOSCOPY 2017 SCREENING FOR DIABETES 07/18/2024 07/18/2021 INFLUENZA VACCINE [...] patient's age to complete this topic IPV VACCINES Aged Out No longer eligi ble based on patient's age to complete this topic MENINGOCOCCAL VACCINES (ACWY) Aged Out No longer eligible based on patient's age to complete this topic MENINGOCOCCAL VACCINES (B) Aged Out N o longer eligible based on patient's age to complete this topic Medical Devices Implanted Type Area Radio Operator Ground Device Identifier Shelf Expiration Date Model / Serial / Lot Clip Hemostasis 360deg 235cm Resolution 360 Latex Free 2.8mm Channel Bx/20ea - [id number] Implanted:Qty: 1 on 06/14/2023 by Tex Callahan MD at [facility] [employer] [id number] VANIA [id number] / / Clip Hemostasis 16mm Cs/5ea - [id number] Implanted:Qty: 1 on 07/09/2024 by Tex Callahan MD at [facility] [employer] [id number] / / Procedures Procedure Name Priority [...] ALKALINE PHOSPHATASE 71 39 - 117 U/L [facility] TOTAL BILIRUBIN 0.5 0.0 - 1.2 mg/dL [facility] DIRECT BILIRUBIN 0.1 0.0 - 0.2 mg/dL [facility] Bilirubin (Indirect) NOT CALCULATED 0 - 1.5 mg/dL [facility] AST 25 0 - 37 U/L [facility] ALT 27 0 - 40 U/L [facility] TOTAL PROTEIN 7.2 6.5 - 8.0 g/dL [facility] ALBUMIN 4.5 3.9 - 4.8 g/dL [facility] GLOBULIN 2.7 1 - 4.8 g/dL [facility] A/G Ratio 1.67 1.00 - 4.80 RATIO [facility] Blood 11/05/2024 2:34 PM EDT 11/05/2024 2:46 PM EDT Haroon Reddy MD LAB BLOOD BKR ORDERABLES Fi nal Result Performing Organization Address City/[facility]/ZIP Co de Phone Number [address] [address] * Valproic acid (11/05/2024 2:34 PM EDT) VALPROIC ACID 58.3 50.0 - 100.0 ug/mL [facility] Blood 11/05/2024 2:34 PM EDT 11/05/2024 2:46 PM EDT us Haroon Reddy MD LAB BLOOD BKR ORDERABLES Fi nal Result [address] [address] * CBC and differential (10/29/2024 2:10 PM EDT) WBC 8.45 4.00 - 11.00 K/uL [facility] RBC 5.03 4.50 - 5.90 M/uL [facility] HGB 15.6 13.5 - 17.5 g/dL [facility] HCT 47.3 41.0 - 53.0 % [facility] PLT 175 150 - 450 K/uL [facility] MCV 94.0 80.0 - 100.0 fL [facility] MCH 31.0 27.0 - 31.0 pg [facility] MCHC 33.0 32.0 - 36.0 g/dL [facility] RDW 12.9 11.5 - 14.5 % [facility] MPV 11.2 8.4 - 12.0 fL [facility] NRBC 0.00 0.00 /100 WBCs [facility] ABSOLUTE NRBC 0.00 0.00 K/uL [facility] DIFF METHOD Auto [facility] NEUTS 63.2 48.0 - 76.0 % [facility] LYMPHS 29.1 18.0 - 41.0 % [facility] MONOS 6.3 4.0 - 11.0 % [facility] EOS 0.1 0.0 - 5.0 % [facility] BASOS 0.6 0.0 - 1.5 % [facility] Granulocytes, immature (%) 0.7 0.0 - 0.9 % [facility] ABSOLUTE NEUTS 5.34 1.92 - 7.60 K/uL [facility] ABSOLUTE LYMPHS 2.46 0.72 - 4.10 K/uL [facility] ABSOLUTE MONOS 0.53 0.16 - 1.10 K/uL [facility] ABSOLUTE EOS 0.01 0.00 - 0.50 K/uL [facility] ABSOLUTE BASOS 0.05 0.00 - 0.15 K/uL [facility] Granulocytes, immature 0.06 0.00 - 0.09 K/uL [facility] Blood 10/29/2024 2:10 PM EDT 10/29/2024 2:13 PM EDT us Haroon Reddy MD LAB BLOOD BKR ORDERABLES Fi nal Result [facility] [address] [place] [address] * ENDOSCOPY, COLON (07/09/2024 10:18 AM EDT) Narrative Transcriptions Tex Callahan MD - 07/09/2024 10:18 AM EDT [facility] Patient Name: Gopi Estes Attending MD:: TEX CALLAHAN MD, Procedure Date: 07/09/2024 10:18 AM Date of : 1970 Age: 54 Admit Type: Outpatient Gender: Male Room: [place] [address] Referring MD: You Worthington Exam Type: Colonoscopy [...] bleeding,one hemostatic clip was successfully placed. Clip security public safety officer: [employer]. There was nobleeding at the end of [...] 10:18 AM Procedure Code(s): --- Professional --- 21680, Colonoscopy, flexible; with removal of tumor(s), polyp(s), or other lesion(s) by snare technique --- Technical --- 29892, Colonoscopy, flexible; with removal of tumor(s), polyp(s), or other lesion(s) by snare technique CPT copyright 2021 [employer]. All rights reserved. The codes documented in this report are preliminary and upon student specialist reviewmay be revised to meet current compliance requirements. Procedure Date: 07/09/2024 10:18:[address] [place] [address] us You Weinstein MD GI PROCEDURE ORDERABL ES Final Result * (ABNORMAL) Lipid panel (07/18/2021 9:22 AM EDT) HDL 40 mg/dL [facility] Comment: Interpretation <40 mg/dL: Low HDL cholesterol (major risk factor for CHD) Greater than or equal to 60 mg/dL: High HDL cholesterol ( negative risk factor for CHD) HDL - cholesterol is affected by a number of factors, e.g. smoking, excerise, hormones, sex and age. CHOLESTEROL 224 0 - 240 mg/dL [facility] TRIGLYCERIDES 322(H) 30 - 160 mg/dL [facility] LDL 120 50 - 129 mg/dL [facility] Comment: LDL levels in terms of risk for coronary heart disease: <100 mg/dL: Optimal 100-129 mg/dL: Near or above optimal 130-159 mg/dL: Borderline high 160-189 mg/dL: High >190 mg/dL: Very High CARDIAC RISK RATIO 5.6(H) 3.4 - 5.0 C [facility] Blood 07/18/2021 9:22 AM EDT 07/18/2021 9:36 AM EDT us Shubham Armendariz MD LAB BLOOD BKR ORDERABLES Fi nal Result [facility] [address] [place], [place] [id number] from Last 3 Months or Most Recently Relevant to Health Maintenance Insurance [address] [place] [address] MEDICARE PART A & B [facility] MEDICARE PART A & B Member Subscriber Plan / Payer (Ef fective 1992-) Name:Gopi Estes Member ID:[id number] Relation to Subscriber:Self Name:Gopi Estes Subscriber ID:[id number] Payer ID:[id number] Group ID:Not on file Type:Medicare Address: [employer] [address] [place] [phone] [facility] MEDICARE PART A & B Member Subscriber Plan / Payer (Ef fective 1992-) Name:Jamar Estesn Member ID:[id number] Relation to Subscriber:Self Name:Gopi Estes Subscriber ID:[id number] Payer ID:[id number] Group ID:Not on file Type:Medicare Address: [employer] [address] [place] [phone] [facility] B Member Subscriber Plan / Payer (Ef fective 1992-Present) Name:Jamar Estesn Member ID:[id number] Relation to Subscriber:Self Name:Gopi Estes Subscriber ID:[id number] Payer ID:[id number] Group ID:Not on file Type:Medicare Address: [employer] [address] [place] [phone] [facility] MEDICARE PART A & B Member Subscriber Plan / Payer (Ef fective 1992-Present) Name:Franklyn Gopi Member ID:[id number] Relation to Subscriber:Self Name:Timmy Esteswn Subscriber ID:[id number] Payer ID:[id number] Group ID:Not on file Type:Medicare Address: [employer] [address] [place] [phone] [facility] B Member Subscriber Plan / Payer ( fective 1992-Present) Name:Jamar Estesn Member ID:[id number] Relation to Subscriber:Self Name:Gopi Estes Subscriber ID:[id number] Payer ID:[id number] Group ID:Not on file Type:Medicare Address: [employer] [address] [place], [place] [phone] [facility] PART A & B [place] A & B [facility] Care Teams Cold Press Loader Relationship Specialty Start Date End Date [facility] [address] [address] PCP - General Family Medicine 12/24/17 Additional Source Comments The information contained in this document represents components of the legal health record. It is not the complete legal health record.[facility]
--- OUTSIDE RECORDS SUMMARY | 2025-01-14 11:54 | XMS_ITS | Encounter Summary ---
Author Organization [facility] Address [address] [facility] [address] [place] [address] Phone Care Team Providers Care Body Piercer Name Role Phone Kristina Gonzalez MD Primary Care Provider You Worthington MD Primary Care Provide r Encounter Details Date Type Department Care Team (Late st Contact Info) Description 12/17/2017 Transcribe Orders [facility] Phleb Main [address] [place] [address] Shubham Armendariz MD [address] [place] [address] [email or web address] Schizophrenia, unspecified type (Primary Dx) Social [...] HEMOGLOBIN A1C 5.3 4.3 - 5.8 % [facility] Blood 02/12/2018 10:4 6 AM EST 02/12/2018 10:48 AM EST us Shubham Armendariz MD LAB BLOOD BKR ORDERABLES Fi nal Result [facility] [address] [place] [address] * (ABNORMAL) Lipid panel (02/12/2018 10:46 AM EST) HDL 47 mg/dL [facility] Comment: Interpretation <40 mg/dL: Low HDL cholesterol (major risk factor for CHD) Greater than or equal to 60 mg/dL: High HDL cholesterol ( negative risk factor for CHD) HDL - cholesterol is affected by a number of factors, e.g. smoking, excerise, hormones, sex and age. CHOLESTEROL 237 0 - 240 mg/dL [facility] TRIGLYCERIDES 241(H) 30 - 160 mg/dL [facility] LDL 142(H) 50 - 129 mg/dL [facility] Comment: LDL levels in terms of risk for coronary heart disease: <100 mg/dL: Optimal 100-129 mg/dL: Near or above optimal 130-159 mg/dL: Borderline high 160-189 mg/dL: High >190 mg/dL: Very High CARDIAC RISK RATIO 5.0 3.4 - 5.0 [facility] Blood 02/12/2018 10:4 6 AM EST 02/12/2018 10:48 AM EST us Shubham Armendariz MD LAB BLOOD BKR ORDERABLES Fi nal Result [facility] [address] [place] [address] * (ABNORMAL) Comprehensive metabolic panel (02/12/2018 10:46 AM EST) SODIUM 140 133 - 146 mmol/L [facility] POTASSIUM 4.2 3.3 - 5.1 mmol/L [facility] CHLORIDE 103 96 - 108 mmol/L [facility] CO2 25 21 - 35 mmol/L [facility] BUN 8 6 - 19 mg/dL [facility] CREATININE 0.70 0.5 - 1.5 mg/dL [facility] GLUCOSE 100(H) 70 - 99 mg/dL [facility] ALBUMIN 4.4 3.9 - 4.8 g/dL [facility] TOTAL PROTEIN 6.9 6.5 - 8.0 g/dL [facility] CALCIUM 9.1 8.4 - 10.3 mg/dL [facility] ALKALINE PHOSPHATASE 55 39 - 117 U/L [facility] TOTAL BILIRUBIN 0.8 0.0 - 1.2 mg/dL [facility] AST 27 0 - 37 U/L [facility] ALT 31 0 - 40 U/L [facility] GLOBULIN 2.5 1 - 4.8 g/dL [facility] EGFR 114 >59 mL/min/1.7 3m2 [facility] Comment:If patient is black, multiply result by 1.159. Estimated glomerular filtration rate calculated using the CKD-EPI equation. ANION GAP 16 10 - 20 mmol/L [facility] Blood 02/12/2018 10:4 6 AM EST 02/12/2018 10:48 AM EST us Shubham Armendariz MD LAB BLOOD BKR ORDERABLES Fi nal Result Performing Organization Address [facility] Co de Phone Number [address] [address] * (ABNORMAL) TSH (12/17/2017 9:41 AM EDT) TSH 5.99(H) 0.27 - 4.20 uIU/mL [facility] Blood 12/17/2017 9:41 AM EDT 12/17/2017 9:43 AM EDT us Shubham Armendariz MD LAB BLOOD BKR ORDERABLES Fi nal Result Performing Organization Address City/[facility]/ZIP Co de Phone Number [address] [address] * Ammonia (12/17/2017 9:41 AM EDT) AMMONIA 29 28 - 80 umol/L [facility] Blood 12/17/2017 9:41 AM EDT 12/17/2017 9:43 AM EDT us Shubham Armendariz MD LAB BLOOD BKR ORDERABLES Fi nal Result [address] [address] * (ABNORMAL) Valproic acid (12/17/2017 9:41 AM EDT) VALPROIC ACID 44.1(L) 50.0 - 100.0 ug/mL [facility] Blood 12/17/2017 9:41 AM EDT 12/17/2017 9:43 AM EDT us Shubham Armendariz MD LAB BLOOD BKR ORDERABLES Fi nal Result Performing Organization Address City/[facility]/ZIP Co de Phone Number [address] [address] documented in this encounter Visit Diagnoses Diagnosis Schizophrenia, unspecified type- Primary documented in this encounter Care Teams Body Piercer Relationship Specialty Start Date End Date Kristina Gonzalez MD [email or web address] PCP - General Family Medicine 11/12/17 12/23/17 You Worthington MD [address] [address] PCP - General Family Medicine 12/24/17 documented as of this encounter Additional Source Comments The information contained in this document represents components of the legal health record. It is not the complete legal health record.[facility]
--- OUTSIDE RECORDS SUMMARY | 2025-01-14 11:54 | XMS_ITS | Encounter Summary ---
Author Organization [facility] Address [address] [facility] 7t [place] [address] Care Team Providers Care Video Network Engineer Name Role Phone Unavailable Primary Care [...] 01/26/2025 3:50 PM EST Office Visit Nick [facility] [address] [place] [address] Sofia Kuhn LLD [address] [place] [address] documented as of this encounter Visit Diagnoses Not on filedocumented in this encounter
--- OUTSIDE RECORDS SUMMARY | 2025-01-14 11:54 | XMS_ITS | Encounter Summary ---
Author Organization [facility] Address [address] [facility] [address] [place] [address] Phone Care Team Providers Care Leach Runner Name Role Phone You Worthington MD Primary Care Provide r Encounter Details Date Type Department Care Team (Latest Contact Info) Description 08/19/2019 Transcribe Orders [facility] Phleb Main [address] [place] [address] Shubham Armendariz MD [address] [place] [address] [email or web address] Schizoaffective disorder, unspecified type (Primary Dx); Type 2 diabetes mellitus without complication, unspecified whether intermediate frame tender insulin use Social History Tobacco Use Types [...] T-hs Gen5 13 0 - 14 ng/L [facility] Blood 08/19/2019 12:1 9 PM EDT 08/19/2019 12:34 PM EDT us Shubham Armendariz MD LAB BLOOD BKR ORDERABLES Fi nal Result [facility] [address] [place] [address] * Ammonia (08/19/2019 12:19 PM EDT) AMMONIA 41 28 - 80 umol/L [facility] Blood 08/19/2019 12:1 9 PM EDT 08/19/2019 12:32 PM EDT Shubham Armendariz MD LAB BLOOD BKR ORDERABLES Fi nal Result [address] [address] * (ABNORMAL) Valproic acid (08/19/2019 12:19 PM EDT) [facility] VALPROIC ACID 33.0(L) 50.0 - 100.0 ug/mL [facility] Blood 08/19/2019 12:1 9 PM EDT 08/19/2019 12:32 PM EDT us Shubham Armendariz MD LAB BLOOD BKR ORDERABLES Fi nal Result Performing Organization Address [facility]/ZIP Co de Phone Number [address] [address] * Hemoglobin A1c (08/19/2019 12:19 PM EDT) [facility] HEMOGLOBIN A1C 5.7 4.3 - 5.8 % [facility] Blood 08/19/2019 12:1 9 PM EDT 08/19/2019 12:32 PM EDT Shubham Armendariz MD LAB BLOOD BKR ORDERABLES Fi nal Result Performing Organization Address City/[facility]/ZIP Co de Phone Number [address] [address] * (ABNORMAL) Lipid panel (08/19/2019 12:19 PM EDT) Pathologist [facility] HDL 42 mg/dL [facility] Comment: Interpretation <40 mg/dL: Low HDL cholesterol (major risk factor for CHD) Greater than or equal to 60 mg/dL: High HDL cholesterol ( negative risk factor for CHD) HDL - cholesterol is affected by a number of factors, e.g. smoking, excerise, hormones, sex and age. CHOLESTEROL 247(H) 0 - 240 mg/dL [facility] TRIGLYCERIDES 324(H) 30 - 160 mg/dL [facility] LDL 140(H) 50 - 129 mg/dL [facility] Comment: LDL levels in terms of risk for coronary heart disease: <100 mg/dL: Optimal 100-129 mg/dL: Near or above optimal 130-159 mg/dL: Borderline high 160-189 mg/dL: High >190 mg/dL: Very High CARDIAC RISK RATIO 5.9(H) 3.4 - 5.0 C [facility] Blood 08/19/2019 12:1 9 PM EDT 08/19/2019 12:32 PM EDT Shubham Armendariz MD LAB BLOOD BKR ORDERABLES Fi nal Result [address] [address] * C-Reactive Protein (08/19/2019 12:19 PM EDT) Pathologist [facility] C REACTIVE PROTEIN 1.2 0.0 - 4.0 mg/L [facility] Blood 08/19/2019 12:1 9 PM EDT 08/19/2019 12:32 PM EDT Shubham Armendariz MD LAB BLOOD BKR ORDERABLES Fi nal Result [address] [address] * (ABNORMAL) Comprehensive metabolic panel (08/19/2019 12:19 PM EDT) SODIUM 139 133 - 146 mmol/L [facility] POTASSIUM 4.3 3.3 - 5.1 mmol/L [facility] CHLORIDE 103 96 - 108 mmol/L [facility] CO2 22 21 - 35 mmol/L [facility] BUN 11 6 - 19 mg/dL [facility] CREATININE 0.70 0.5 - 1.5 mg/dL [facility] GLUCOSE 108(H) 70 - 99 mg/dL [facility] ALBUMIN 4.7 3.9 - 4.8 g/dL [facility] TOTAL PROTEIN 7.3 6.5 - 8.0 g/dL [facility] CALCIUM 9.7 8.4 - 10.3 mg/dL [facility] ALKALINE PHOSPHATASE 59 39 - 117 U/L [facility] TOTAL BILIRUBIN 0.5 0.0 - 1.2 mg/dL [facility] AST 22 0 - 37 U/L [facility] ALT 27 0 - 40 U/L [facility] GLOBULIN 2.6 1 - 4.8 g/dL [facility] EGFR 112 >59 mL/min/1.7 3m2 [facility] Comment:If patient is black, multiply result by 1.159. Estimated glomerular filtration rate calculated using the CKD-EPI equation. ANION GAP 18 10 - 20 mmol/L [facility] Blood 08/19/2019 12:1 9 PM EDT 08/19/2019 12:32 PM EDT us Shubham Armendariz MD LAB BLOOD BKR ORDERABLES Fi nal Result [facility] [address] [place] [address] documented in this encounter Visit Diagnoses Diagnosis Schizoaffective disorder, unspecified type- Primary Type 2 diabetes mellitus without complication, unspecified whether intermediate frame tender insulin use documented in this encounter Care Teams Leach Runner Relationship Specialty Start Date End Date You Worthington MD [address] [address] PCP - General Family Medicine 12/24/17 documented as of this encounter Additional Source Comments The information contained in this document represents components of the legal health record. It is not the complete legal health record.[facility]
--- OUTSIDE RECORDS SUMMARY | 2025-01-14 11:54 | XMS_ITS | Encounter Summary ---
Author Organization [facility] Address [address] [facility] [address] [place] [address] Phone Care Team Providers Care Jacquard Loom Weaver Name Role Phone You Worthingtno MD Primary Care Provide r Encounter Details Date Type Department Care Team (Late st Contact Info) Description 07/09/2024 Procedure Pass [facility] Endoscopy Admitting Dept Virtual Department [address] [place] [address] Social History Tobacco Use Types Packs/Day Years [...] on filedocumented in this encounter Care Teams Jacquard Loom Weaver Relationship Specialty Start Date End Date You Worthington MD [address] [address] PCP - General Family Medicine 12/24/17 documented as of this encounter Additional Source Comments The information contained in this document represents components of the legal health record. It is not the complete legal health record.[facility]
--- OUTSIDE RECORDS SUMMARY | 2025-01-14 11:54 | XMS_ITS | Encounter Summary ---
Author Organization [facility] Address [address] [facility] 7t [place] [address] Care Team Providers Care Seamer Operator Name Role Phone Unavailable Primary Care [...] 01/26/2025 3:50 PM EST Office Visit Nick [facility] [address] [place] [address] Sofia Kuhn LLD [address] [place] [address] documented as of this encounter Visit Diagnoses Not on filedocumented in this encounter
--- OUTSIDE RECORDS SUMMARY | 2025-01-14 11:54 | XMS_ITS | Clinical Summary ---
Author Organization [employer] Address [address] [place] [address] 7t [place] [address] Care Team Providers Care Human Resource Statistician Name Role Phone Unavailable Primary Care Provider [...] PM EST Office Visit Nick [facility] [address] [place] [address] Sofia Kuhn LLD [address] [place] [address] Health Maintenance Due Date Last Done Comments CT Colonography 1972 Depression Screening 1972 FIT DNA/Cologuard 1972 FIT 1972 FOBT 1972 HIV Screening 1972 Lipid Panel 1972 SDOH Screening 1972 Sigmoidoscopy 1972 Disability Screening 1972 Alcohol/Substance Use Screening 1984 Family Planning (PISQ) 1987 Hepatitis C Screening 1990 Hepatitis B Vaccines (1 of 3 - 19+ 3-dose series) 1991 Dental X-Ray: Bitewings 07/25/2024 07/25/19, 07/25/2022, 01/10/2021, Additional history exists Dental Oral Exam 10/29/2024 04/30/2024, 09/2023, 07/25/2023, Additional history exists COVID-19 Vaccine ( season) 2024 12/03/2023, 11/21/2022, 11/21/2021, Additional history exists Influenza Vaccine (#1) 2024 , 12/10/2023, 12/12/2022, Additional history exists Dental Prophylaxis 02/25/2025 08/25/2024, 0 04/30/2024, 01/09/2024, Additional history exists Dental X-Ray: Full Mouth 07/26/2025 023, 07/09/2017, 12/26/2015, Additional history exists Tobacco Screening 08/25/2025 08/25/2024 DTaP/Tdap/Td Vaccines (4 - Td or Tdap) 01/25/2032 01/24/2022, 01/24/2022, 11/21/2010, Additional history exists Colonoscopy 07/09/2034 07/09/2024, 07/09/2024 Colorectal Cancer Screening 07/09/2034 RSV Patients and Patients Aged 60 years or older (1 - 1-dose 75+ series) 2047 Zoster Vaccines Completed 06/24/2024, 04/25/2024 Pneumococcal Vaccine: [...] Most Recently Relevant to Health Maintenance Insurance [facility] MEDICAID STAND ADULT DENTAL - HSN FULL (MEDICAID)
--- OUTSIDE RECORDS SUMMARY | 2025-01-14 11:54 | XMS_ITS | Encounter Summary ---
Author Organization [facility] Address [address] [facility] [address] [place] [phone] Phone Care Team Providers Care Automotive Service Consultant Name Role Phone You Worthington MD Primary Care Provide r Encounter Details Date Type Department Care Team (Late st Contact Info) Description 12/24/2017 Transcribe Orders Non-Invasive Cardiology [address] [place] [address] Shubham Armendariz MD [address] [place] [address] [email or web address] Schizophrenia, unspecified type (Primary Dx) Social [...] BPM [facility] Atrial Rate 80 BPM [facility] [place] Interval 140 ms [facility] QRS Duration 86 ms [facility] QT Interval 348 ms [facility] QTC Interval 401 ms [facility] P Oscar 45 degrees [facility] R Wave [place] 9 degrees [facility] T Wave [place] 34 degrees [facility] 12/24/2017 1:01 PM EDT [...] Primary documented in this encounter Care Teams Automotive Service Consultant Relationship Specialty Start Date End Date You Worthington MD [address] [facility] [address] [place] [address] PCP - General Family Medicine 12/24/17 documented as of this encounter Additional Source Comments The information contained in this document represents components of the legal health record. It is not the complete legal health record.[facility]
--- OUTSIDE RECORDS SUMMARY | 2025-01-14 11:54 | XMS_ITS | Encounter Summary ---
Author Organization [employer] [facility] Address [address] [facility] 7t [place] [address] Care Team Providers Care Document Imaging Specialist Name Role Phone Unavailable Primary Care Provider [...] 01/26/2025 3:50 PM EST Office Visit Nick [facility] Dental [address] [place] [address] Sofia Kuhn LLD 9 [place] [address] documented as of this encounter Visit Diagnoses Not on filedocumented in this encounter
--- OUTSIDE RECORDS SUMMARY | 2025-01-14 11:54 | XMS_ITS | Encounter Summary ---
Author Organization [facility] Address [address] [facility] [address] [place] [address] Phone Care Team Providers Care Parking Inspector Name Role Phone You Worthington MD Primary Care Provide r Encounter Details Date Type Department Care Team (Late st Contact Info) Description 08/19/2019 Transcribe Orders [facility] Phleb Main [address] [place] [address] Shubham Armendariz MD [address] [place] [address] [email or web address] Type 2 diabetes mellitus without complication, unspecified whether continuous churn buttermaker insulin use (Primary Dx); Schizoaffective disorder, unspecified [...] 2 diabetes mellitus without complication, unspecified whether snf insulin use Schizoaffective disorder, unspecified type documented in this encounter Results * Microalbumin/creatinine ratio, random urine (08/19/2019 1:45 PM EDT) URINE MICROALBUMIN 1.3 0 - 2.3 mg/dL [facility] URINE CREATININE 218 mg/dL [facility] [facility] MICROALB/CRE RATIO 6.0 0 - 20 mg/g Cre [facility] Urine (Urine) 08/19/2019 1:4 5 PM EDT 08/19/2019 2:18 PM EDT us Shubham Armendariz MD LAB URINE ORDERABLES Final Result [facility] [address] [place] [address] documented in this encounter Visit Diagnoses Diagnosis Type 2 diabetes mellitus without complication, unspecified whether snf insulin use- Primary Schizoaffective disorder, unspecified type documented in this encounter Care Teams Parking Inspector Relationship Specialty Start Date End Date You Worthington MD [address] [address] PCP - General Family Medicine 12/24/17 documented as of this encounter Additional Source Comments The information contained in this document represents components of the legal health record. It is not the complete legal health record.[facility]
--- OUTSIDE RECORDS SUMMARY | 2025-01-14 11:54 | XMS_ITS | Encounter Summary ---
Author Organization [facility] Address [address] [facility] [address] [place] [phone] Phone Care Team Providers Care Plater Apprentice Name Role Phone You Worthington MD Primary Care Provide r Encounter Details Date Type Department Care Team (Late st Contact Info) Description 06/14/2023 Procedure Pass [facility] Endoscopy Admitting Dept Virtual Department [address] [place] [address] Social History Tobacco Use Types Packs/Day Years [...] on filedocumented in this encounter Care Teams Plater Apprentice Relationship Specialty Start Date End Date You Worthington MD [address] [address] PCP - General Family Medicine 12/24/17 documented as of this encounter Additional Source Comments The information contained in this document represents components of the legal health record. It is not the complete legal health record.[facility]
--- OUTSIDE RECORDS SUMMARY | 2025-01-14 11:54 | XMS_ITS | Encounter Summary ---
Author Organization [facility] Address [address] [facility] [address] [place] [address] Phone Care Team Providers Care Grade Recorder Name Role Phone Kristina Gonzalez MD Primary Care Provider Kristina Gonzalez MD Primary Care Provider You Worthington MD Primary Care Provide r Encounter Details Date Type Department Care Team (Latest Contact Info) Description 01/23/2017 Transcribe Orders [facility] Phleb Main [address] [place] [address] Geo Russo NP [address] [place], [place] [id number] Schizoaffective disorder, unspecified type (Primary Dx) Social [...] EST) WBC 7.89 3.40 - 11.20 K/uL [facility] RBC 5.06 4.50 - 5.50 M/uL [facility] HGB 15.9 13.0 - 17.0 g/dL [facility] HCT 46.8 40.0 - 51.0 % [facility] PLT 193 130 - 400 K/uL [facility] MCV 92.5 79.0 - 98.0 fL [facility] MCH 31.4 27.0 - 34.8 pg [facility] MCHC 34.0 31.5 - 36.0 g/dL [facility] RDW 13.0 10.8 - 14.6 % [facility] MPV 10.9 9.4 - 12.4 fl [facility] NRBC 0.00 /100 WBCs [facility] ABSOLUTE NRBC 0.00 K/uL [facility] DIFF METHOD Auto [facility] NEUTS 59.8 45.30 - 77.70 % [facility] LYMPHS 30.7 12.30 - 39.70 % [facility] MONOS 8.2 4.10 - 12.80 % [facility] EOS 0.3 0 - 7.2 % [facility] BASOS 0.5 0 - 2.80 % [facility] Granulocytes, immature (%) 0.5 0.0 - 0.9 % [facility] ABSOLUTE NEUTS 4.72 1.40 - 7.70 K/uL [facility] ABSOLUTE LYMPHS 2.42 0.60 - 3.20 K/uL [facility] ABSOLUTE MONOS 0.65(H) 0.11 - 0.59 K/uL [facility] ABSOLUTE EOS 0.02 0.01 - 0.50 K/uL [facility] ABSOLUTE BASOS 0.04 0.00 - 0.08 K/uL [facility] Granulocytes, immature 0.04 0.00 - 0.05 K/uL [facility] Blood 01/23/2017 1:58 PM EST 01/23/2017 2:06 PM EST us Geo Russo NP LAB BLOOD BKR ORDERABLES Edited Result - Final [facility] [address] [place] [address] documented in this encounter Visit Diagnoses Diagnosis Schizoaffective disorder, unspecified type- Primary documented in this encounter Care Teams Grade Recorder Relationship Specialty Start Date End Date Kristina Gonzlaez MD PCP - General Family Medicine 01/23/17 11/11/17 Kristina Gonzalez MD PCP - General Family Medicine 11/12/17 12/23/17 You Worthington MD [address] [address] PCP - General Family Medicine 12/24/17 documented as of this encounter Additional Source Comments The information contained in this document represents components of the legal health record. It is not the complete legal health record.[facility]
--- OUTSIDE RECORDS SUMMARY | 2025-01-14 11:54 | XMS_ITS | Encounter Summary ---
Author Organization [facility] Address [address] [place] [phone] Phone Care Team Providers Care Traffic Reporter Name Role Phone You Worthington MD Primary Care Provide r Encounter Details Date Type Department Care Team (Late st Contact Info) Description 07/19/2020 Transcribe Orders Virtual Department [address] [place] [address] Shubham Armendariz MD [address] [place] [address] [email or web address] Therapeutic drug monitoring (Primary Dx) Social [...] BPM [facility] Atrial Rate 103 BPM [facility] [place] Interval 126 ms [facility] QRS Duration 88 ms [facility] QT Interval 328 ms [facility] QTC Interval 429 ms [facility] P [place] 48 degrees [facility] R Wave [place] 38 degrees [facility] T Wave [place] 29 degrees [facility] 07/21/2020 11:3 9 AM [...] monitoring documented in this encounter Care Teams Traffic Reporter Relationship Specialty Start Date End Date You Worthington MD [address] [facility] [address] [place] [address] PCP - General Family Medicine 12/24/17 documented as of this encounter Additional Source Comments The information contained in this document represents components of the legal health record. It is not the complete legal health record.[facility]
--- OUTSIDE RECORDS SUMMARY | 2025-01-14 11:54 | XMS_ITS | Encounter Summary ---
Author Organization [facility] Address [address] [facility] 7t [place] [address] Care Team Providers Care Electrical And Instrumentation Manager Name Role Phone Unavailable Primary Care Provider [...] 01/26/2025 3:50 PM EST Office Visit Nick [facility] Dental [address] [place] [address] Sofia Kuhn LLD [address] [place] [address] documented as of this encounter Visit Diagnoses Not on filedocumented in this encounter
== END 2025-01-14 09:58 | disposition home or self-care (01) ==
LOC: HO.US 09:57
PROVIDERS: PCP Family Medicine; Visit Provider Surgery Vascular Surgery
DX: I82.511 Chronic embolism and thrombosis of right femoral vein (principal); Z79.01 Long term (current) use of anticoagulants
CPT/HCPCS: 93971

== ENCOUNTER → 2025-01-14 10:00 | Outpatient (BNV) | payer MEDICARE, MEDICAID, SELFPAY | PROVIDERS: PCP Family Medicine; Visit Provider Radiology Diagnostic Radiology | DX: I82.511 Chronic embolism and thrombosis of right femoral vein (principal) | CPT/HCPCS: 93971 ==